=== PATIENT | female | born 1985 | race American Indian/Alaskan Native ===

== ENCOUNTER 2018-11-30 19:07 | Inpatient (IN) | payer MEDICAID, OTHER ==
[2018-11-30] MEDS ORDERED: Sodium Chloride 0.9% 1,000 ML IV ONE (19:28)
[2018-11-30] MEDS ORDERED: Clindamycin Phosphate 900 MG in Sodium Chloride 0.9% 100 ML IV ONE (19:28)
[2018-11-30] MEDS ORDERED: Acetaminophen/HYDROcodone 325-10 MG Tab PO ONE (19:28)
--- NOTE | 2018-11-30 19:31 | EDM.PDOC ---
ED HPI GENERAL MEDICAL PROBLEM - General Chief Complaint: Skin Complaint Stated Complaint: CYST UNDER LEFT ARM Time Seen by Provider: 11/30/18 19:28 Source of Information: Reports: Patient History Limitations: Reports: No Limitations - History of Present Illness INITIAL COMMENTS - FREE TEXT/NARRATIVE: 3 days h/o left armpit abscess. usually hot packs work but not this time. Left Arm Pain Score (Numeric/FACES): 9 - Related Data Allergies Allergy/AdvReac Type Severity Reaction Status Date / Time No Known Allergies Allergy Verified 11/30/18 19:15 Home Meds: Home Meds . 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 ED EXAM, SKIN/RASH Exam: See Below Exam Limited By: No Limitations General Appearance: Alert, WD/WN, Mild Distress, Other (discomfort) Ears: Hearing Grossly Normal Throat/Mouth: Normal Voice, No Airway Compromise Head: Atraumatic Neck: Non-Tender, Full Range of Motion Respiratory/Chest: No Respiratory Distress Cardiovascular: Regular Rate, Rhythm GI/Abdominal: Soft, Non-Tender Extremities: Other (left armpit abscess firm tender non fluctuant, no lymphangitis, NV wnl) Neurological: Alert, Oriented, Normal Cognition, Normal Gait, No Motor/Sensory Deficits Psychiatric: Tearful Skin: Warm, Dry, Normal Color Location, Skin: Upper Extremity, Left Associated features: Tenderness, Inflammation. No: Lymphangitis Lymphatic: No Adenopathy Course - Vital Signs Last Recorded V/S: Last Vital Signs Temp 36.8 C 11/30/18 19:14 Pulse 86 11/30/18 19:14 Resp 16 11/30/18 19:14 BP 110/51 L 11/30/18 19:14 Pulse Ox 100 11/30/18 19:14 - Orders/Labs/Meds Orders: Active Orders 24 hr Category Date Time Status Extremity Non Vascular Lt [US] Urgent Exams 11/30/18 20:06 Ordered CULTURE BLOOD [BC] Stat Lab 11/30/18 19:30 Received Labs: Laboratory Tests 11/30/18 11/30/18 11/30/18 Range/Units 19:30 19:30 19:30 WBC 22.2 H (5.0-10.0) 10^3/uL RBC 4.36 (4.2-5.4) 10^6/uL Hgb 7.6 L (12.0-16.0) g/dL Hct 25.9 L (37.0-47.0) % MCV 59.4 L (80-100) fL MCH 17.4 L (27.0-34.0) pg MCHC 29.3 L (33.0-35.0) g/dL Plt Count 495 H (150-450) 10^3/uL Lymph % (Auto) 10.6 L (20.5-50.1) % [place] % (Auto) 6.4 (2-8) % Eos % (Auto) 2.9 (1.0-3.0) % Add Manual Diff Yes Neutrophils % (Manual) 63 (42-75) % Band Neutrophils % 13 % Lymphocytes % (Manual) 12 L (20-50) % Atypical Lymphs % 0 % Monocytes % (Manual) 7 (2-8) % Eosinophils % (Manual) 4 H (1-3) % Basophils % (Manual) 1 Platelet Estimate Increased Hypochromasia 2+ moderate Microcytosis 2+ moderate Sodium 137 (135-145) mmol/L Potassium 2.8 L (3.6-5.0) mmol/L Chloride 105 (101-111) mmol/L Carbon Dioxide 23.0 (21.0-31.0) mmol/L Anion Gap 11.8 BUN 10 (7-18) mg/dL Creatinine 0.6 (0.6-1.3) mg/dL Est Cr Clr Drug Dosing 139.37 mL/min Estimated GFR (MDRD) > 60 BUN/Creatinine Ratio 16.66 Glucose 139 H (74-105) mg/dL Lactic Acid 0.9 (0.5-2.2) mmol/L Calcium 8.2 L (8.4-10.2) mg/dl Total Bilirubin 0.6 (0.2-1.0) mg/dL AST 21 (10-42) IU/L ALT 21 (10-60) IU/L Alkaline Phosphatase 73 (42-121) IU/L Total Protein 7.4 (6.7-8.2) g/dl Albumin 3.4 (3.2-5.5) g/dl Globulin 4.0 Albumin/Globulin Ratio 0.85 Meds: Medications Discontinued Medications Generic Name Dose Route Start Last Admin Trade Name Freq PRN Reason Stop Dose Admin Hydrocodone Bitart/Acetaminophen 1 tab 11/30/18 19:28 11/30/18 19:44 [place] 325-10 Mg PO 11/30/18 19:29 1 tab ONETIME ONE Administration Clindamycin Phosphate 900 mg/ 106 mls @ 200 mls/hr 11/30/18 19:28 11/30/18 19 :42 Sodium Chloride IV 11/30/18 19:59 200 mls/hr ONETIME ONE Administration Sodium Chloride 1,000 mls @ 999 mls/hr 11/30/18 19:28 11/30/18 19:41 Normal Saline IV 11/30/18 20:28 999 mls/hr .BOLUS ONE Administration - Re-Assessments/Exams Free Text/Narrative Re-Assessment/Exam: 11/30/18 21:11 results discussed with pt and case discussed with Dr Sanchez who kindly admitted pt to observation Departure - Departure Time of Disposition: 21:11 Disposition: Refer to Observation Condition: Fair Clinical Impression: Cellulitis Qualifiers: Site of cellulitis: extremity Site of cellulitis of extremity: axilla Laterality: left Qualified Code(s): L03.112 - Cellulitis of left axilla - Discharge Information Forms: ED Department Discharge - My Orders Last 24 Hours: My Active Orders 11/30/18 19:30 CULTURE BLOOD [BC] Stat 11/30/18 20:06 Extremity Non Vascular Lt [US] Urgent - Assessment/Plan Last 24 Hours: My Active Orders 11/30/18 19:30 CULTURE BLOOD [BC] Stat 11/30/18 20:06 Extremity Non Vascular Lt [US] Urgent
[2018-11-30 19:58] LABS: ANION GAP 11.8; CHLORIDE,CL 105 mmol/L (101-111); SODIUM,NA 137 mmol/L (135-145)
[2018-11-30] MEDS ORDERED: Morphine 2 MG/ML Syringe IVPUSH PRN (22:37)
[2018-11-30] MEDS ORDERED: Ondansetron 4 MG Tab.DIS PO PRN (22:37)
[2018-11-30] MEDS ORDERED: Docusate Sodium 100 MG Cap PO PRN (22:37)
[2018-11-30] MEDS ORDERED: Magnesium Hydroxide 400 MG/5 ML Susp 30 ML Cup PO PRN (22:37)
[2018-11-30] MEDS: Potassium Chloride 10 MEQ Tab.ER PO SCH (23:14)
[2018-11-30] MEDS: Piperacillin/Tazobactam 3.375 GM in Sodium Chloride 0.9% 100 ML IV SCH (23:14)
[2018-11-30] MEDS: NS + KCl 20mEq/L 1,000 ML IV SCH (23:14)
[2018-11-30] MEDS: Ketorolac 30 MG/ML SDV IVPUSH PRN (23:15)
[2018-11-30] MEDS: oxyCODONE 5 MG Tab PO PRN (23:16)
[2018-11-30] MEDS ORDERED: Vancomycin 1.5 GM in Sodium Chloride 0.9% 500 ML IV SCH (23:30)
--- NOTE | 2018-12-01 04:19 | HP ---
CHIEF COMPLAINT: Left arm pain. HISTORY OF PRESENTING ILLNESS: Mrs. Kacy Taylor is a 33-year-old female with a medical history significant for MRSA infection in the past, history of -induced hypertension and -induced diabetes, presented to the ER today with complaints of having pain to the left arm, and was noted to have cellulitis and possible abscess of the left arm, requiring admission to the hospital. She was also noted to have severe hypokalemia and anemia. At this time, the patient says that for the last 2-3 days, the patient has been experiencing this left arm pain in the armpit, which is 8-9/10 in intensity, which gets aggravated on movement and ambulation, relieved partially with pain medication. She has been taking ibuprofen and Tylenol high doses for better control of the pain, but continued to have pain, and has been feeling chills and rigors in the last 1 or 2 days. She denies any associated nausea or vomiting. No diarrhea. No abdominal pain. No chest pain. No shortness of breath at this time. The patient denied any history of chest pains on exertion. No history of dyspnea on exertion. No history of orthopnea or paroxysmal nocturnal dyspnea. The patient denied any history of hematemesis, hematochezia, or melenic stools. Normal bowel and bladder habits otherwise. REVIEW OF SYSTEMS: A complete review of systems including skin, ear, nose, and throat, cardiovascular system, respiratory system, gastrointestinal system, genitourinary system, hematology, oncology, neurology, allergy, immunology, constitutional were all evaluated and were negative except for the above-said notes. PAST MEDICAL HISTORY: Significant for obesity, history of MRSA infection in the past, history of group B streptococcus infection in the past, depression, -induced hypertension and -induced diabetes in the past. PAST SURGICAL HISTORY: Significant for sections, appendicectomy, and laparoscopic cholecystectomy. FAMILY HISTORY: Significant for hypertension and diabetes in her mother and father, and stomach cancer in her father, and stomach cancer in one of her sisters. SOCIAL HISTORY: The patient smokes a pack of cigarettes for the last almost a week and history of occasional alcohol intake. ALLERGIES: The patient noted to have allergies to lactose and soap. HOME MEDICATIONS: No known home medications at this time. PHYSICAL EXAMINATION: Vital Signs: Temperature of 98.3, pulse of 86, blood pressure 110/51, respiratory rate of 16, and saturating at 100% on room air. General Appearance: The patient is well oriented to time, place, and person; follows commands spontaneously. Cardiovascular System: S1, S2 heard with normal intensity. No gallops. Respiratory System: Clear to auscultation bilaterally. No wheezes. No crepitations. Abdomen: Soft. Bowel sounds positive. Nontender. No rigidity. Extremities: No edema in bilateral lower extremities. The patient is noted to have tenderness, erythema, and swelling noted to the left armpit, and a solid mass-like induration noted to the left armpit, a small indentation with superficial ulcer noted on the left arm. No active discharge noted at this time. LABORATORY DATA: WBC 22.2, hemoglobin 7.6, hematocrit 25.9, platelet count 495. Sodium 137, potassium 2.8, chloride 105, bicarb 23, BUN 10, creatinine 0.6, glucose 139, lactic acid 0.9. ASSESSMENT: 1. Cellulitis and possible abscess of the left armpit. 2. Anemia. 3. Iron-deficiency anemia. 4. Hypokalemia. 5. Leukocytosis. PLAN: 1. Cellulitis and possible abscess: The patient is noted to have cellulitis involving the left armpit. The patient had an ultrasound as per discussion with the ER staff and no drainable abscess noted at this time. The patient has history of MRSA in the past. We will obtain blood cultures and wound cultures. We will start her on Zosyn and vancomycin, and we will closely follow with the culture reports. 2. Anemia: The patient has longstanding history of iron-deficiency anemia. The patient claims that she is not taking any iron tablets at home as she does not tolerate them very well. We will get iron, B12, folate levels and peripheral smear. She might benefit from blood transfusion if needed. We will closely follow the patient. 3. Tobacco use: The patient is educated about tobacco cessation. Strongly encouraged her to quit smoking, which she understands and verbalized the same. 4. Hypokalemia: The patient noted to have severe hypokalemia. We will replace with IV and oral potassium chloride, recheck a basic metabolic panel in the a.m. 5. DVT prophylaxis indicated. We will have her on Lovenox for DVT prophylaxis. 6. Code status: The patient wants to be full code. 7. Discussed with Dr. Ruano, ER physician, regarding the plan of care. Reviewed the labs and medications. Reviewed the old charts. [facility] /[id number]
[2018-12-01] MEDS: Piperacillin/Tazobactam 3.375 GM in Sodium Chloride 0.9% 100 ML IV SCH ×5 (05:33→23:09)
[2018-12-01] MEDS: Ketorolac 30 MG/ML SDV IVPUSH PRN ×2 (05:48→11:48)
[2018-12-01] MEDS: oxyCODONE 5 MG Tab PO PRN ×2 (05:49→11:48)
[2018-12-01 06:46] LABS: ANION GAP 12.1; CHLORIDE,CL 110 mmol/L (101-111); SODIUM,NA 139 mmol/L (135-145)
[2018-12-01] MEDS: Ondansetron 4 MG/2 ML SDV IVPUSH PRN ×2 (07:12→17:44)
[2018-12-01] MEDS: Vancomycin 1.5 GM in Sodium Chloride 0.9% 500 ML IV SCH ×3 (09:05→23:59)
[2018-12-01] MEDS: Enoxaparin 40 MG/0.4 ML Syringe SUBCUT SCH (09:06)
[2018-12-01] MEDS: Potassium Chloride 10 MEQ Tab.ER PO SCH ×3 (09:07→23:17)
[2018-12-01] MEDS ORDERED: Potassium Chloride 10 MEQ Tab.ER PO ONE (11:38)
[2018-12-01] MEDS: NS + KCl 20mEq/L 1,000 ML IV SCH (13:41)
--- NOTE | 2018-12-01 15:04 | PN ---
DATE: 12/01/2018 HISTORY OF PRESENT ILLNESS: Ms. Claudia Woodruff is a 33-year-old female with medical history significant for iron deficiency anemia, admitted to the hospital with complaints of left armpit pain, noted to have cellulitis and possible lymphadenitis with history of MRSA positive in the past. For the last 24 hours, the patient is continued on IV antibiotics and IV pain medications. Her pain seems to be improved with Toradol. She denies any chest pain. No shortness of breath. No abdominal pain. No nausea. No vomiting. No diarrhea. REVIEW OF SYSTEMS: Cardiovascular, respiratory, gastrointestinal, neurology, constitutional were all evaluated. PHYSICAL EXAMINATION: Vitals: Temperature of 99.3, pulse of 80, blood pressure 103/51, respiratory rate of 18, and saturating at 99% on room air. General Appearance: The patient is well oriented to time, place, and person. Follows commands spontaneously. Cardiovascular System: S1 and S2 heard with normal intensity. No gallops. Respiratory System: Clear to auscultation bilaterally. No wheeze. No crepitations. Abdomen: Soft. Bowel sounds positive. Nontender. No rigidity. Extremities: No edema in bilateral lower extremities. The patient continues to have swelling and erythema to the left armpit. Tenderness improved. MEDICATIONS: Tylenol 650 every 4 hours as needed for pain and fever; Lovenox 40 mg subcutaneous daily; Toradol 30 mg IV q.6 hours as needed for pain; magnesium oxide 250 mg twice a day; morphine 2 mg IV every 2 hours as needed for pain control; oxycodone 5 mg every 4 hours as needed; potassium chloride 20 mEq 3 times a day; vancomycin, pharmacy to dose; Zosyn 3.375 g IV q.6 hourly. LABORATORY DATA: 1. WBC 20.1, hemoglobin 6.9, hematocrit 22.3, platelet count 432. 2. Sodium 139, potassium 3.1, chloride 110, bicarb 20, BUN 8, creatinine 0.6, glucose 99. Magnesium 1.6. Phosphorus 2.6. ASSESSMENT: 1. Cellulitis and possible abscess of the left armpit. 2. Hypokalemia. 3. Hypomagnesemia. 4. Anemia. 5. Iron deficiency. PLAN: 1. Cellulitis and possible abscess. At this juncture abscess looks less likely. The patient had an ultrasound of the left armpit which did not show any drainable abscess. She is noted to have tenderness and swelling in the left armpit, unsure if the patient has any lymphadenitis. The patient is started on Zosyn and vancomycin after which her symptom seems to be improved. We will continue with current antibiotics. We will follow the culture reports. 2. Anemia. The patient noted to have a hemoglobin of 6.9, and she has severe anemia. We will transfuse at least 2 units of packed red blood cell. Informed consent is obtained from the patient for blood transfusion after explaining the risks, benefits, complications of blood transfusion. She had blood transfusion in the past, back in 2009, without any complications at that time. We will closely follow. We also ordered for iron, B12, and folate level which are still pending, and we will replace with iron as needed. The patient was on iron tablets, but she is not able to tolerate the iron tablets well, one might consider giving IV iron while in the hospital. 3. Hypokalemia. The patient noted to have a potassium of 3.1, slightly improved. We will replace with 20 mEq of potassium chloride and give additional 40 mEq today and recheck a basic metabolic panel in the a.m. 4. Hypomagnesemia. We will replace with oral magnesium and recheck the magnesium in a.m. 5. DVT prophylaxis. Continue with Lovenox for DVT prophylaxis. [facility] /[id number]
[2018-12-01] MEDS ORDERED: Aluminum Hydroxide/Magnesium Hydroxide/Simethicone Susp 30 ML Cup PO PRN (19:09)
[2018-12-01] MEDS ORDERED: Pantoprazole 40 MG in Sodium Chloride 0.9% 100 ML IV SCH (20:00)
[2018-12-01] MEDS: Pantoprazole 40 MG Vial IVPUSH SCH (20:25)
[2018-12-02] MEDS: NS + KCl 20mEq/L 1,000 ML IV SCH (04:09)
[2018-12-02] MEDS: Piperacillin/Tazobactam 3.375 GM in Sodium Chloride 0.9% 100 ML IV SCH ×4 (05:18→23:13)
[2018-12-02] MEDS: Acetaminophen 325 MG Tab PO PRN ×2 (07:33→21:54)
[2018-12-02 07:59] LABS: ANION GAP 12.9; CHLORIDE,CL 112 mmol/L (101-111); SODIUM,NA 140 mmol/L (135-145)
[2018-12-02] MEDS: Vancomycin 1.5 GM in Sodium Chloride 0.9% 500 ML IV SCH ×2 (08:27→11:37)
[2018-12-02] MEDS: Pantoprazole 40 MG Vial IVPUSH SCH (08:50)
[2018-12-02] MEDS: Potassium Chloride 10 MEQ Tab.ER PO SCH ×3 (08:50→17:17)
[2018-12-02] MEDS: Enoxaparin 40 MG/0.4 ML Syringe SUBCUT SCH (08:52)
--- NOTE | 2018-12-02 09:47 | PN ---
DATE: 12/02/2018 HISTORY OF PRESENT ILLNESS: Mrs. Claudia Woodruff is a 33-year-old female with a medical history significant for an iron deficiency anemia, admitted with complaints of left arm pain. Noted to have cellulitis involving the left armpit with lymphadenitis with history of MRSA in the past. For the last 24 hours, the patient pain seems to be improving, but she had episodes of nausea and vomiting yesterday mainly from her Toradol, so we had to discontinue the Toradol. She denies any ongoing chest pains. No shortness of breath. No abdominal pain. No nausea. No vomiting. This morning, no diarrhea. REVIEW OF SYSTEMS: Cardiovascular, respiratory, gastrointestinal, neurology, constitutional were all evaluated. PHYSICAL EXAMINATION: Vital Signs: Temperature of 99.1, pulse of 81, blood pressure 116/59, respiratory rate of 16, saturating at 100% on room air. General Appearance: The patient is well oriented to time, place, and person. Follows commands spontaneously. Cardiovascular: S1 and S2 heard with normal intensity. No gallops. Respiratory: Clear to auscultation bilaterally. No wheeze. No crepitations. Abdomen: Soft. Bowel sounds positive. Nontender. No rigidity. Extremities: No edema in bilateral lower extremity. Tenderness and swelling noted to the left arm pit. No active discharge noted from the left arm. MEDICATIONS: Reviewed. Continue with: 1. Tylenol 650 every 4 hours as needed for pain and fever. 2. Docusate sodium 100 mg twice a day as needed. 3. Lovenox 40 mg subcutaneous daily. 4. Magnesium oxide 250 mg twice a day. 5. Morphine 2 mg IV every 2 hours as needed for pain. 6. Oxycodone 5 mg every 4 hours as needed for pain. 7. Zosyn and vancomycin pharmacy to dose. 8. Potassium chloride 20 mEq 3 times a day. LABS: Awaiting for labs, ordered for CBC and a BMP. ASSESSMENT: 1. Cellulitis involving the left arm pit. 2. Hypokalemia. 3. Hypomagnesemia. 4. Anemia. 5. Iron deficiency. PLAN: 1. Cellulitis. The patient is continued on Zosyn and vancomycin; so far her cultures remained negative. We will follow the culture reports. 2. Anemia. The patient was noted to have severe anemia with hemoglobin dropping down to 6. She received 2 units of packed red blood cells yesterday without any complications. We will follow the CBC this morning. 3. Hypokalemia. The patient was replaced with IV and oral potassium chloride. We will discontinue the IV fluids for now. Continue the oral potassium chloride. We will follow the BMP this morning. 4. Hypomagnesemia. She is currently on oral magnesium. We will recheck a magnesium level in a.m. 5. DVT prophylaxis. Continue with Lovenox for DVT prophylaxis. 6. Given her history of MRSA in the past. We will continue Zosyn and vancomycin. Since she still has swelling and tenderness. We will continue the antibiotics for now. [facility] /[id number]
[2018-12-02] MEDS: Sodium Chloride 0.9% 10 ML Syringe FLUSH PRN ×2 (16:42→23:13)
[2018-12-03] MEDS: Vancomycin 1.5 GM in Sodium Chloride 0.9% 500 ML IV SCH (00:03)
[2018-12-03] MEDS: Piperacillin/Tazobactam 3.375 GM in Sodium Chloride 0.9% 100 ML IV SCH ×2 (05:14→12:10)
[2018-12-03] MEDS: Sodium Chloride 0.9% 10 ML Syringe FLUSH PRN (05:14)
[2018-12-03] MEDS: Acetaminophen 325 MG Tab PO PRN (06:28)
[2018-12-03 07:14] LABS: ANION GAP 13.8; CHLORIDE,CL 109 mmol/L (101-111); SODIUM,NA 140 mmol/L (135-145)
[2018-12-03] MEDS: Potassium Chloride 10 MEQ Tab.ER PO SCH (08:31)
[2018-12-03] MEDS: Enoxaparin 40 MG/0.4 ML Syringe SUBCUT SCH (08:32)
[2018-12-03] MEDS: Pantoprazole 40 MG Vial IVPUSH SCH (08:32)
--- NOTE | 2018-12-04 11:52 | DISCH ---
ADMITTING DIAGNOSES: 1. Cellulitis and possible abscess. 2. Severe anemia. 3. Hypokalemia. 4. Chronic tobacco use. DISCHARGE DIAGNOSES: 1. Cellulitis, improved on IV antibiotic with Zosyn and vancomycin, switched to oral Bactrim at the time of discharge. 2. Iron-deficiency anemia, chronic, requiring blood transfusion 2 units on this admission. 3. Hypokalemia. 4. Hypomagnesemia. 5. Iron deficiency. HISTORY OF PRESENTING ILLNESS: Ms. Kacy Taylor is a 33-year-old female with a medical history significant for long-standing history of iron-deficiency anemia, admitted with left armpit pain. The patient had an ultrasound of the left armpit, which showed evidence of palpable abnormality corresponds to a hyperechoic lesion, etiology uncertain; findings may be related to lymphadenopathy, however, other masses are not excluded. The patient had 1.9 x 1.5 x 2.2 cm mass. She was noted to have folliculitis leading to cellulitis and lymphadenopathy in the left armpit. The patient was started on IV Zosyn and vancomycin. The patient had history of MRSA infection in the past, she responded well to the treatment. She was also noted to have severe anemia on this admission with hemoglobin dropping down to 6.9 and hematocrit of 22.3. She has history of iron-deficiency anemia. She has been advised to take iron tablets, but patient is noncompliant with medical treatment. The patient received 2 units of packed red blood cells, after which her hemoglobin improved to 10.5. She has persistent leukocytosis, but she denied any fevers or chills at this time. She also noted to have hypokalemia at the time of admission with potassium of 2.8 requiring IV and oral potassium chloride, after which her potassium improved to 3.8. She remained hemodynamically stable on this admission. She wanted to be discharged home. She remained afebrile. Her symptoms resolved, and her swelling in the left armpit has also much improved. She is being discharged home in stable condition. She is advised to take Bactrim 1 tablet Double-Strength twice a day for the next 1 week. She is advised to follow with her primary care physician in the next 1 week of time. She is advised to return back to the hospital if she has any increased swelling, increased pain or drainage or fevers and chills, which she understands and verbalizes the same. DISCHARGE MEDICATIONS: 1. Bactrim double-strength 1 tablet twice a day for 1 week. 2. Tylenol 650 mg every 4 hours as needed for pain and fever. PHYSICAL EXAMINATION: On the day of discharge: Vital Signs: Temperature of 99.1, pulse of 81, blood pressure 116/57, respiratory rate 16, saturating at 99%. General Appearance: The patient is well oriented to time, place, and person. Follows commands spontaneously. Cardiovascular System: S1, S2 heard with normal intensity. No gallops. Respiratory System: Clear to auscultation bilaterally. No wheeze. No crepitations. Abdomen: Soft. Bowel sounds positive. Nontender. No rigidity. Extremities: No edema, bilateral lower extremities. Left armpit, mild swelling noted, lymphadenopathy, much improved from the time of admission. No erythema, no tenderness noted at this time. No discharge noted at this time. Pulses felt well. CONDITION ON DISCHARGE: Poor. CONDITION ON DISCHARGE: Stable. DISPOSITION: Discharged to home. ACTIVITY: As tolerated. DIET: Cardiac healthy diet. DISCHARGE INSTRUCTIONS: Patient is educated about tobacco cessation and strongly encouraged to quit smoking, which she understands and verbalized the same. Follow up with primary care physician in the next 1 week of time. Spent over 35 minutes of time in evaluating and treating this patient and making discharge plans. [facility] /[id number]
== END 2018-12-03 12:55 | disposition home or self-care (01) | DRG 603 ==
LOC: DL.ED 19:07 → DL.MS 21:20 → OBSVTOIN 22:37
PROVIDERS: ADMIT Internal Medicine; ATTEND Internal Medicine
PROC: 30233N1 Transfusion of Nonautologous Red Blood Cells into Peripheral Vein, Percutaneous Approach (ICD-10-PCS; principal; 2018-12-01)
DX: L03.112 Cellulitis of left axilla (principal); E87.6 Hypokalemia; E66.9 Obesity, unspecified; F32.9 Major depressive disorder, single episode, unspecified; F17.210 Nicotine dependence, cigarettes, uncomplicated; D50.9 Iron deficiency anemia, unspecified; L02.412 Cutaneous abscess of left axilla; I88.9 Nonspecific lymphadenitis, unspecified; E83.42 Hypomagnesemia; Z90.49 Acquired absence of other specified parts of digestive tract; Z79.899 Other long term (current) drug therapy; Z91.19 Patient's noncompliance with other medical treatment and regimen; Z68.36 Body mass index [BMI] 36.0-36.9, adult
CPT/HCPCS: 36415; 36430; 76881-LT; 80048; 80053; 80202; 82607; 82728; 82746; 83540; 83550; 83605; 83735; 84100; 85025; 85027; 86850; 86900; 86901; 86920; 86922; 87040; 96365; 99284-25; A9270-GY; C9113; J1650; J1885; J2405; J2543; J3370; J3480; J3490; J7030; J7040; J7050; P9016

== ENCOUNTER 2021-03-09 15:40 | Observation (INO) | payer OTHER ==
[2021-03-09 16:49] LABS: ANION GAP 16.4 mEq/L (7-13); CHLORIDE,CL 92 mmol/L (98-107); SODIUM,NA 130 mmol/L (136-145)
[2021-03-09 17:01] LABS: ACETAMINOPHEN 0 ug/mL (10-30 (Therapeutic))
[2021-03-09 17:02] LABS: AMPHETAMINES,URINE NEGATIVE (NEGATIVE); BARBITURATES,URINE NEGATIVE (NEGATIVE); BENZODIAZEPINE,URINE NEGATIVE (NEGATIVE); MDMA (ECSTASY), URINE NEGATIVE (NEGATIVE); METHADONE,URINE NEGATIVE (NEGATIVE); METHAMPHETAMINES,URINE NEGATIVE (NEGATIVE); OPIATES,URINE NEGATIVE (NEGATIVE); OXYCODONE,URINE NEGATIVE (NEGATIVE); PHENCYCLIDINE,URINE NEGATIVE (NEGATIVE); TCA,URINE NEGATIVE (NEGATIVE)
[2021-03-09] MEDS ORDERED: Sodium Chloride 0.9% 1,000 ML IV ONE ×2 (17:03→18:40)
[2021-03-09 17:20] LABS: ALLEN TEST PERFORMED; BASE EXCESS ARTERIAL -1 mmol/L ((-2)-(+3)); BICARBONATE,ARTERIAL 23.2 mmol/L (22-26); O2 DELIVERY DEVICE ROOM AIR; O2 SATURATION ARTERIAL 99 % (95-100); PCO2 ARTERIAL 38 mmHg (35-45); PO2 ARTERIAL 90 mmHg (70-100)
[2021-03-09] MEDS ORDERED: 50% Dextrose in Water 50 ML Syringe IVPUSH PRN ×3 (17:49→20:21)
[2021-03-09] MEDS ORDERED: Glucagon,Human Recombinant 1 MG Vial IM PRN ×3 (17:49→20:21)
[2021-03-09] MEDS ORDERED: Insulin Regular, Human 100 Units/ML 3 ML Vial IV ONE (17:49)
--- NOTE | 2021-03-09 18:11 | EDM.PDOC ---
ED HPI GENERAL MEDICAL PROBLEM - General Chief Complaint: Diabetic Complaint Stated Complaint: hypergycemia Time Seen by Provider: 03/09/21 17:05 Source of Information: Reports: Patient, Provider History Limitations: Reports: No Limitations - History of Present Illness INITIAL COMMENTS - FREE TEXT/NARRATIVE: This 35 yo female patient was sent to the ED from the [facility] due to an elevated blood sugar level. The patient's blood sugar level at the [facility] was reported to be 995. The patient reports she has was feeling very tired over the past week, thirsty and had frequent urination. The patient reports she was given a script for insulin today, but had not picked up the prescription before having her blood sugar checked and advised to come to the ED. Onset: Unknown/Unsure Duration: Constant Location: Reports: Generalized Quality: Reports: Other Severity: Moderate Improves with: Reports: None Worsens with: Reports: None Context: Reports: Other Associated Symptoms: Reports: No Other Symptoms - Related Data Allergies Allergy/AdvReac Type Severity Reaction Status Date / Time No Known Allergies Allergy Verified 11/30/18 19:15 Home Meds: Home Meds Acetaminophen [Tylenol] 650 mg PO Q4H PRN tablet 12/03/18 [Rx] Sulfamethoxazole/Trimethoprim [Bactrim Ds Tablet] 1 each PO BID 7 Days #14 tablet 12/03/18 [Rx] Past Medical History - Past Health History Medical/Surgical History: Denies Medical/Surgical History [employer] History: Reports: Endocrine/Metabolic History: Reports: Diabetes, Type I - Infectious Disease History Infectious Disease History: Reports: MRSA - Past Surgical History GI Surgical History: Reports: Appendectomy, Cholecystectomy Female Surgical History: Reports: Section Other Female Surgeries/Procedures: [id number] Social & Family History - Family History Family Medical History: No Pertinent Family History - Tobacco Use Tobacco Use Status *Q: Never Tobacco User - Caffeine Use Caffeine Use: Reports: None - Recreational Drug Use Recreational Drug Use: No ED ROS GENERAL - Review of Systems Review Of Systems: Comprehensive ROS is negative, except as noted in HPI. ED EXAM GENERAL NO PERIP PULSE - Physical Exam Exam: See Below Exam Limited By: No Limitations General Appearance: Alert, WD/WN, Moderate Distress Eye Exam: Bilateral Eye: EOMI, Normal Inspection, PERRL Ears: Normal External Exam, Normal Canal, Hearing Grossly Normal, Normal TMs Nose: Normal Inspection, Normal Mucosa, No Blood Throat/Mouth: Normal Inspection, Normal Lips, Normal Teeth, Normal Gums, Normal Oropharynx, Normal Voice, No Airway Compromise Head: Atraumatic, Normocephalic Neck: Normal Inspection, Supple, Non-Tender, Full Range of Motion Respiratory/Chest: No Respiratory Distress, Lungs Clear, Normal Breath Sounds, No Accessory Muscle Use, Chest Non-Tender Cardiovascular: Normal Peripheral Pulses GI/Abdominal: Normal Bowel Sounds, Soft, Non-Tender, No Organomegaly, No Distention, No Abnormal Bruit, No Mass (Female) Exam: Deferred Rectal (Female) Exam: Deferred Back Exam: Normal Inspection, Full Range of Motion, NT Extremities: Normal Inspection, Normal Range of Motion, Non-Tender, Normal Capillary Refill, No Pedal Edema Neurological: Alert, Oriented, CN II-XII Intact, Normal Cognition, Normal Gait, Normal Reflexes, No Motor/Sensory Deficits Psychiatric: Normal Affect, Normal Mood Skin Exam: Warm, Dry, Intact, Normal Color, No Rash Lymphatic: No Adenopathy Course - Vital Signs Last Recorded V/S: Last Vital Signs Temp 97.2 F 03/09/21 16:21 Pulse 77 03/09/21 16:21 Resp 16 03/09/21 16:21 BP 142/66 H 03/09/21 16:21 Pulse Ox 99 03/09/21 16:21 - Orders/Labs/Meds Orders: Active Orders 24 hr Category Date Time Status Admission Diagnosis [ADT] Urgent ADT 03/09/21 18:03 Ordered Admission Status [Patient Status] [ADT] Routine ADT 03/09/21 18:03 Ordered Blood Glucose Check, Bedside [RC] ONETIME Care 03/09/21 17:49 Ordered CORONAVIRUS COVID-19 LIBBY [MOLEC] Urgent Lab 03/09/21 17:58 Ordered Dextrose 50% in Water Med 03/09/21 17:49 Ordered 50 ml IVPUSH Q15M PRN Glucagon,Human Recombinant [GlucaGen] Med 03/09/21 17:49 Ordered 1 mg IM Q15M PRN Medication Orders Dextrose/Water (50% Dextrose In Water 50 Ml Syringe) 50 ml IVPUSH Q15M PRN PRN Reason: Hypoglycemia Glucagon (Glucagon,Human Recombinant 1 Mg Vial) 1 mg IM Q15M PRN PRN Reason: Hypoglycemia Labs: Laboratory Tests 03/09/21 03/09/21 03/09/21 Range/Units 16:15 16:15 16:15 WBC 14.0 H (5.0-10.0) 10^3/uL RBC 4.75 (4.2-5.4) 10^6/uL Hgb 8.7 L D (12.0-16.0) g/dL Hct 30.1 L (37.0-47.0) % MCV 63.4 L (80-100) fL MCH 18.3 L (27.0-34.0) pg MCHC 28.9 L (33.0-35.0) g/dL Plt Count 741 H D (150-450) 10^3/uL Neut % (Auto) (42.2-75.2) % Add Manual Diff Yes Neutrophils % (Manual) 60 (42-75) % Lymphocytes % (Manual) 28 (20-50) % Monocytes % (Manual) 7 (2-8) % Eosinophils % (Manual) 5 H (1-3) % Hypochromasia 3+ marked Anisocytosis 2+ moderate Microcytosis 1+ slight Macrocytosis 1+ slight ABG pH (7.35-7.45) ABG pCO2 (35-45) mmHg ABG pO2 (70-100) mmHg ABG HCO3 (22-26) mmol/L ABG O2 Saturation (95-100) % ABG Base Excess ((-2)-(+3)) mmol/L Vito Test O2 Delivery Device Sodium 130 L (136-145) mmol/L Potassium 3.4 L (3.5-5.1) mmol/L Chloride 92 L (98-107) mmol/L Carbon Dioxide 25 (21-32) mmol/L Anion Gap 16.4 H (7-13) mEq/L BUN 6 L (7-18) mg/dL Creatinine 1.15 H (0.55-1.02) mg/dL Est Cr Clr Drug Dosing 63.92 mL/min Estimated GFR (MDRD) 54 BUN/Creatinine Ratio 5.2 (No establ ref range) Glucose 786 H* (70-99) mg/dL Lactic Acid (0.4-2.0) mmol/L Calcium 8.7 (8.5-10.1) mg/dL Magnesium 1.9 (1.8-2.4) mg/dL Total Bilirubin 0.6 (0.2-1.0) mg/dL AST 49 H (15-37) U/L ALT 63 H (14-59) U/L Alkaline Phosphatase 161 H (46-116) U/L Total Protein 8.5 H (6.4-8.2) g/dL Albumin 3.5 (3.4-5.0) g/dL Globulin 5.0 Albumin/Globulin Ratio 0.7 Urine Color (YELLOW) Urine Appearance (CLEAR) Urine pH (5.0-9.0) Ur Specific [place] (1.005-1.030) Urine Protein (NEGATIVE) Urine Glucose (UA) (NEGATIVE) Urine Ketones (NEGATIVE) Urine Occult Blood (NEGATIVE) Urine Nitrite (NEGATIVE) Urine Bilirubin (NEGATIVE) Urine Urobilinogen (0.2-1.0) mg/dL Ur Leukocyte Esterase (NEGATIVE) Urine RBC /HPF Urine WBC (0-5/HPF) /HPF Ur Epithelial Cells (NOT SEEN) /HPF Urine Bacteria (0-FEW/HPF) /HPF Urine Yeast (NOT SEEN) /HPF Urine HCG, Qual Salicylates < 2.8 L (2.8-20(Therapeutic)) mg/dL Urine Opiates Screen (NEGATIVE) Ur Oxycodone Screen (NEGATIVE) Urine Methadone Screen (NEGATIVE) Acetaminophen 0 L (10-30 (Therapeutic)) ug/mL Ur Barbiturates Screen (NEGATIVE) U Tricyclic Antidepress (NEGATIVE) Ur Phencyclidine Scrn (NEGATIVE) Ur Amphetamine Screen (NEGATIVE) U Methamphetamines Scrn (NEGATIVE) Urine MDMA Screen (NEGATIVE) U Benzodiazepines Scrn (NEGATIVE) Urine Cocaine Screen (NEGATIVE) U Marijuana (THC) Screen (NEGATIVE) Ethyl Alcohol < 3 (0) mg/dL Ketones Small-20 mg/dl 03/09/21 03/09/21 03/09/21 Range/Units 16:41 16:45 16:45 WBC (5.0-10.0) 10^3/uL RBC (4.2-5.4) 10^6/uL Hgb (12.0-16.0) g/dL Hct (37.0-47.0) % MCV (80-100) fL MCH (27.0-34.0) pg MCHC (33.0-35.0) g/dL Plt Count (150-450) 10^3/uL Neut % (Auto) (42.2-75.2) % Add Manual Diff Neutrophils % (Manual) (42-75) % Lymphocytes % (Manual) (20-50) % Monocytes % (Manual) (2-8) % Eosinophils % (Manual) (1-3) % Hypochromasia Anisocytosis Microcytosis Macrocytosis ABG pH (7.35-7.45) ABG pCO2 (35-45) mmHg ABG pO2 (70-100) mmHg ABG HCO3 (22-26) mmol/L ABG O2 Saturation (95-100) % ABG Base Excess ((-2)-(+3)) mmol/L Vito Test O2 Delivery Device Sodium (136-145) mmol/L Potassium (3.5-5.1) mmol/L Chloride (98-107) mmol/L Carbon Dioxide (21-32) mmol/L Anion Gap (7-13) mEq/L BUN (7-18) mg/dL Creatinine (0.55-1.02) mg/dL Est Cr Clr Drug Dosing mL/min Estimated GFR (MDRD) BUN/Creatinine Ratio (No establ ref range) Glucose (70-99) mg/dL Lactic Acid 1.6 (0.4-2.0) mmol/L Calcium (8.5-10.1) mg/dL Magnesium (1.8-2.4) mg/dL Total Bilirubin (0.2-1.0) mg/dL AST (15-37) U/L ALT (14-59) U/L Alkaline Phosphatase (46-116) U/L Total Protein (6.4-8.2) g/dL Albumin (3.4-5.0) g/dL Globulin Albumin/Globulin Ratio Urine Color Yellow (YELLOW) Urine Appearance Clear (CLEAR) Urine pH 6.5 (5.0-9.0) Ur Specific [place] 1.010 (1.005-1.030) Urine Protein Negative (NEGATIVE) Urine Glucose (UA) 500 H (NEGATIVE) Urine Ketones Negative (NEGATIVE) Urine Occult Blood Trace-intact H (NEGATIVE) Urine Nitrite Negative (NEGATIVE) Urine Bilirubin Negative (NEGATIVE) Urine Urobilinogen 0.2 (0.2-1.0) mg/dL Ur Leukocyte Esterase Negative (NEGATIVE) Urine RBC 0-5 /HPF Urine WBC 0-5 (0-5/HPF) /HPF Ur Epithelial Cells Few (NOT SEEN) /HPF Urine Bacteria Few (0-FEW/HPF) /HPF Urine Yeast Few H (NOT SEEN) /HPF Urine HCG, Qual Negative Salicylates (2.8-20(Therapeutic)) mg/dL Urine Opiates Screen (NEGATIVE) Ur Oxycodone Screen (NEGATIVE) Urine Methadone Screen (NEGATIVE) Acetaminophen (10-30 (Therapeutic)) ug/mL Ur Barbiturates Screen (NEGATIVE) U Tricyclic Antidepress (NEGATIVE) Ur Phencyclidine Scrn (NEGATIVE) Ur Amphetamine Screen (NEGATIVE) U Methamphetamines Scrn (NEGATIVE) Urine MDMA Screen (NEGATIVE) U Benzodiazepines Scrn (NEGATIVE) Urine Cocaine Screen (NEGATIVE) U Marijuana (THC) Screen (NEGATIVE) Ethyl Alcohol (0) mg/dL Ketones 03/09/21 03/09/21 Range/Units 16:45 17:15 WBC (5.0-10.0) 10^3/uL RBC (4.2-5.4) 10^6/uL Hgb (12.0-16.0) g/dL Hct (37.0-47.0) % MCV (80-100) fL MCH (27.0-34.0) pg MCHC (33.0-35.0) g/dL Plt Count (150-450) 10^3/uL Neut % (Auto) (42.2-75.2) % Add Manual Diff Neutrophils % (Manual) (42-75) % Lymphocytes % (Manual) (20-50) % Monocytes % (Manual) (2-8) % Eosinophils % (Manual) (1-3) % Hypochromasia Anisocytosis Microcytosis Macrocytosis ABG pH 7.40 (7.35-7.45) ABG pCO2 38 (35-45) mmHg ABG pO2 90 (70-100) mmHg ABG HCO3 23.2 (22-26) mmol/L ABG O2 Saturation 99 (95-100) % ABG Base Excess -1 ((-2)-(+3)) mmol/L Vito Test Performed O2 Delivery Device Room air Sodium (136-145) mmol/L Potassium (3.5-5.1) mmol/L Chloride (98-107) mmol/L Carbon Dioxide (21-32) mmol/L Anion Gap (7-13) mEq/L BUN (7-18) mg/dL Creatinine (0.55-1.02) mg/dL Est Cr Clr Drug Dosing mL/min Estimated GFR (MDRD) BUN/Creatinine Ratio (No establ ref range) Glucose (70-99) mg/dL Lactic Acid (0.4-2.0) mmol/L Calcium (8.5-10.1) mg/dL Magnesium (1.8-2.4) mg/dL Total Bilirubin (0.2-1.0) mg/dL AST (15-37) U/L ALT (14-59) U/L Alkaline Phosphatase (46-116) U/L Total Protein (6.4-8.2) g/dL Albumin (3.4-5.0) g/dL Globulin Albumin/Globulin Ratio Urine Color (YELLOW) Urine Appearance (CLEAR) Urine pH (5.0-9.0) Ur Specific [place] (1.005-1.030) Urine Protein (NEGATIVE) Urine Glucose (UA) (NEGATIVE) Urine Ketones (NEGATIVE) Urine Occult Blood (NEGATIVE) Urine Nitrite (NEGATIVE) Urine Bilirubin (NEGATIVE) Urine Urobilinogen (0.2-1.0) mg/dL Ur Leukocyte Esterase (NEGATIVE) Urine RBC /HPF Urine WBC (0-5/HPF) /HPF Ur Epithelial Cells (NOT SEEN) /HPF Urine Bacteria (0-FEW/HPF) /HPF Urine Yeast (NOT SEEN) /HPF Urine HCG, Qual Salicylates (2.8-20(Therapeutic)) mg/dL Urine Opiates Screen Negative (NEGATIVE) Ur Oxycodone Screen Negative (NEGATIVE) Urine Methadone Screen Negative (NEGATIVE) Acetaminophen (10-30 (Therapeutic)) ug/mL Ur Barbiturates Screen Negative (NEGATIVE) U Tricyclic Antidepress Negative (NEGATIVE) Ur Phencyclidine Scrn Negative (NEGATIVE) Ur Amphetamine Screen Negative (NEGATIVE) U Methamphetamines Scrn Negative (NEGATIVE) Urine MDMA Screen Negative (NEGATIVE) U Benzodiazepines Scrn Negative (NEGATIVE) Urine Cocaine Screen Negative (NEGATIVE) U Marijuana (THC) Screen Negative (NEGATIVE) Ethyl Alcohol (0) mg/dL Ketones Meds: Medications Generic Name Dose Route Start Last Admin Trade Name Freq PRN Reason Stop Dose Admin Dextrose/Water 50 ml 03/09/21 17:49 50% Dextrose In Water 50 Ml Syringe IVPUSH Q15M PRN Hypoglycemia Glucagon 1 mg 03/09/21 17:49 Glucagon,Human Recombinant 1 Mg Vial IM Q15M PRN Hypoglycemia Discontinued Medications Generic Name Dose Route Start Last Admin Trade Name Leah PRN Reason Stop Dose Admin Sodium Chloride 1,000 mls @ 999 mls/hr 03/09/21 17:03 03/09/21 17:07 Normal Saline IV 03/09/21 18:03 999 mls/hr .BOLUS ONE Administration Insulin Human Regular 5 unit 03/09/21 17:49 Insulin Regular, Human 100 Units/Ml 3 Ml Vial IV 03/09/21 17:50 ONETIME ONE Departure - Departure Time of Disposition: 18:11 Disposition: Refer to Observation Condition: Fair Clinical Impression: Acute hyperglycemia - Discharge Information *PRESCRIPTION DRUG MONITORING PROGRAM REVIEWED*: Not Applicable *COPY OF PRESCRIPTION DRUG MONITORING REPORT IN PATIENT OTTONIEL: Not Applicable Care Plan Goals: Discussed the patient's history, examination and lab results with Dr. Anaya. Dr. Anaya accepted the patient for continued evaluation and management at [facility] in [place]. Sepsis Event Note (ED) - Evaluation Sepsis Screening Result: No Definite Risk - Focused Exam Vital Signs: Vital Signs Temp Pulse Resp BP Pulse Ox 03/09/21 16:21 97.2 F 77 16 142/66 H 99 - My Orders Last 24 Hours: My Active Orders 03/09/21 17:49 Blood Glucose Check, Bedside [RC] ONETIME Dextrose 50% in Water 50 ml IVPUSH Q15M PRN Glucagon,Human Recombinant [GlucaGen] 1 mg IM Q15M PRN 03/09/21 17:58 CORONAVIRUS COVID-19 LIBBY [MOLEC] Urgent 03/09/21 18:03 Admission Diagnosis [ADT] Urgent Admission Status [Patient Status] [ADT] Routine - Assessment/Plan Last 24 Hours: My Active Orders 03/09/21 17:49 Blood Glucose Check, Bedside [RC] ONETIME Dextrose 50% in Water 50 ml IVPUSH Q15M PRN Glucagon,Human Recombinant [GlucaGen] 1 mg IM Q15M PRN 03/09/21 17:58 CORONAVIRUS COVID-19 LIBBY [MOLEC] Urgent 03/09/21 18:03 Admission Diagnosis [ADT] Urgent Admission Status [Patient Status] [ADT] Routine
[2021-03-09 19:19] LABS: ANION GAP 15.7 mEq/L (7-13); CHLORIDE,CL 103 mmol/L (98-107); SODIUM,NA 140 mmol/L (136-145)
[2021-03-09] MEDS ORDERED: Potassium Chloride 10 MEQ in Premix Bag 1 BAG IV ONE (19:23)
[2021-03-09] MEDS ORDERED: Magnesium Sulfate/Water 2 GM in Premix Bag 1 BAG IV ONE (19:24)
[2021-03-09] MEDS ORDERED: Ketorolac 30 MG/ML SDV IVPUSH ONE (19:37)
[2021-03-09] MEDS ORDERED: Ondansetron 4 MG/2 ML SDV IVPUSH PRN (20:05)
[2021-03-09] MEDS ORDERED: Sodium Chloride 0.9% 10 ML Syringe FLUSH PRN (20:05)
[2021-03-09] MEDS ORDERED: Sodium Chloride 0.45% 1,000 ML IV SCH (20:15)
--- NOTE | 2021-03-09 20:16 | PCM.HP ---
H&P History of Present Illness - General Date of Service: 03/09/21 Admit Problem/Dx: Admission Diagnosis/Problem Admission Diagnosis/Problem Hyperglycemia - History of Present Illness Initial Comments - Free Text/Narative: The patient is a 35-year-old female who presents with chief complaint of hyperglycemia. The patient states that she was diagnosed with diabetes approximately 1 week prior to hospitalization. She states on this day of hospitalization, March 09, 2021, she went to her outpatient clinic to package pick up her medications or prescription for her medications and her blood sugar was checked at that time and it was noted that she was hyperglycemic with her blood sugar level documented as 995 by staff member in the emergency department. The patient was subsequently directed to the emergency department. The patient Kasey that if she is not directed to the emergency department she would have not have presented on her own accord given that she was not feeling unwell with the exception of nausea. The patient had fever, rigors, vomiting, cough, wheeze, abdominal pain, diarrhea, myalgia. Upon further questioning the patient Kasey that she has been exhibiting blurry vision, polyuria, and polydipsia. She denies polyphagia. As mentioned above, per a staff member in the emergency department the patient's blood glucose was found to be 995 in the outpatient clinic. Upon presentation to the emergency department, the patient's serum glucose was found to be approximately 1000. At 4:15 PM her serum glucose was elevated at 786. At 5:03 PM the patient received an order for 1 L of IV normal saline and at 5:49 PM the patient received an order for 5 units of regular insulin. I was called with a request for hospitalization at 5:59 PM and during the call I expressed my concerns about whether adequate treatment had been rendered at that time given the severity of the patient's hyperglycemia and the modest amount of insulin that was administered at that time. At the very least it was my impression that the patient should have had her serum glucose rechecked to determine whether further treatment was necessary at that time. At 6:40 PM the patient received an order for 1 L of IV normal saline. At 6:42 PM patient serum glucose was checked and was found to be 368. At 7 PM the patient's serum glucose was checked and was found to be 291. At 7:25 PM I received a call from a staff memb er in the emergency department with a request for hospitalization and I indicated that the patient may be transferred to the medical floor as her serum glucose, at that time, had been adequately decreased as, during the prior call, I was notified that her serum glucose at that time was grossly elevated at 786. The patient presents for further evaluation - Related Data Allergies/Adverse Reactions: Allergies Allergy/AdvReac Type Severity Reaction Status Date / Time No Known Allergies Allergy Verified 11/30/18 19:15 Home Medications: Home Meds Acetaminophen [Tylenol] 650 mg PO Q4H PRN tablet 12/03/18 [Rx] Sulfamethoxazole/Trimethoprim [Bactrim Ds Tablet] 1 each PO BID 7 Days #14 tablet 12/03/18 [Rx] Past Medical History - Past Health History Medical/Surgical History: Denies Medical/Surgical History [employer] History: Reports: Endocrine/Metabolic History: Reports: Diabetes, Type I - Infectious Disease History Infectious Disease History: Reports: MRSA - Past Surgical History GI Surgical History: Reports: Appendectomy, Cholecystectomy Female Surgical History: Reports: Section Other Female Surgeries/Procedures: [id number] Social & Family History - Family History Family Medical History: No Pertinent Family History - Tobacco Use Tobacco Use Status *Q: Never Tobacco User - Caffeine Use Caffeine Use: Reports: None - Recreational Drug Use Recreational Drug Use: No H&P Review of Systems - Review of Systems: Review Of Systems: See Below General: Reports: No Symptoms HEENT: Reports: Visual Changes Pulmonary: Reports: No Symptoms Cardiovascular: Reports: No Symptoms Gastrointestinal: Reports: No Symptoms Genitourinary: Reports: No Symptoms Musculoskeletal: Reports: No Symptoms Skin: Reports: No Symptoms Psychiatric: Reports: No Symptoms Neurological: Reports: No Symptoms Hematologic/Lymphatic: Reports: No Symptoms Immunologic: Reports: No Symptoms Exam - Exam Exam: See Below - Vital Signs Vital Signs: Last Vital Signs Temp 97.2 F 03/09/21 16:21 Pulse 77 03/09/21 16:21 Resp 16 03/09/21 16:21 BP 142/66 H 03/09/21 16:21 Pulse Ox 99 03/09/21 16:21 Weight: 258 lb 4.8 oz - Exam General: Alert, Oriented, 4 HEENT: PERRLA, Hearing Intact, Mucosa Moist & [place], Nares Patent, Normal Nasal Septum, Posterior Pharynx Clear, Conjunctiva Clear, EOMI, EACs Clear, TMs Clear Neck: Supple, Trachea Midline, 2 Lungs: Clear to Auscultation, Normal Respiratory Effort Cardiovascular: Regular Rate, Regular Rhythm GI/Abdominal Exam: Normal Bowel Sounds, Soft, Non-Tender, No Organomegaly, No Distention, No Abnormal Bruit, No Mass, Pelvis Stable (Female) Exam: No: Normal External Exam, Normal Speculum Exam, Normal Bimanual Exam Back Exam: Normal Inspection, Full Range of Motion, NT Extremities: Normal Inspection, Normal Range of Motion, Non-Tender, No Pedal Edema, Normal Capillary Refill Peripheral Pulses: 2+: Carotid (L), Carotid (R), Brachial (L), Brachial (R), Radial (L), Radial (R), Femoral (L), Femoral (R), Popliteal (L), Popliteal (R), Posterior Tibial (L), Posterior Tibial (R), Dorsalis Pedis (L), Dorsalis Pedis (R) Skin: Warm, Dry, Intact Neurological: Cranial Nerves Intact, Reflexes Equal Bilateral Neuro Extensive - Mental Status: Alert, Oriented x3, Normal Mood/Affect, Normal Cognition Neuro Extensive - Motor, Sensory, Reflexes: CN II-XII Intact, Normal Gait, Normal Reflexes DTR: 2+: Bicep (L), Bicep (R), Tricep (L), Tricep (R), Patella (L), Patella (R), Achilles (L), Achilles (R) Psychiatric: Alert, Normal Affect, Normal Mood - Patient Data Lab Results Last 24 hrs: Laboratory Results - last 24 hr 03/09/21 03/09/21 03/09/21 Range/Units 16:00 16:15 16:15 WBC 14.0 H (5.0-10.0) 10^3/uL RBC 4.75 (4.2-5.4) 10^6/uL Hgb 8.7 L D (12.0-16.0) g/dL Hct 30.1 L (37.0-47.0) % MCV 63.4 L (80-100) fL MCH 18.3 L (27.0-34.0) pg MCHC 28.9 L (33.0-35.0) g/dL Plt Count 741 H D (150-450) 10^3/uL Neut % (Auto) (42.2-75.2) % Add Manual Diff Yes Neutrophils % (Manual) 60 (42-75) % Lymphocytes % (Manual) 28 (20-50) % Monocytes % (Manual) 7 (2-8) % Eosinophils % (Manual) 5 H (1-3) % Hypochromasia 3+ marked Anisocytosis 2+ moderate Microcytosis 1+ slight Macrocytosis 1+ slight ABG pH (7.35-7.45) ABG pCO2 (35-45) mmHg ABG pO2 (70-100) mmHg ABG HCO3 (22-26) mmol/L ABG O2 Saturation (95-100) % ABG Base Excess ((-2)-(+3)) mmol/L Vito Test O2 Delivery Device Sodium 130 L (136-145) mmol/L Potassium 3.4 L (3.5-5.1) mmol/L Chloride 92 L (98-107) mmol/L Carbon Dioxide 25 (21-32) mmol/L Anion Gap 16.4 H (7-13) mEq/L BUN 6 L (7-18) mg/dL Creatinine 1.15 H (0.55-1.02) mg/dL Est Cr Clr Drug Dosing 63.92 mL/min Estimated GFR (MDRD) 54 BUN/Creatinine Ratio 5.2 (No establ ref range) Glucose 786 H* (70-99) mg/dL POC Glucose (70-99) mg/dL Lactic Acid (0.4-2.0) mmol/L Calcium 8.7 (8.5-10.1) mg/dL Magnesium 1.9 (1.8-2.4) mg/dL Total Bilirubin 0.6 (0.2-1.0) mg/dL AST 49 H (15-37) U/L ALT 63 H (14-59) U/L Alkaline Phosphatase 161 H (46-116) U/L Total Protein 8.5 H (6.4-8.2) g/dL Albumin 3.5 (3.4-5.0) g/dL Globulin 5.0 Albumin/Globulin Ratio 0.7 Urine Color (YELLOW) Urine Appearance (CLEAR) Urine pH (5.0-9.0) Ur Specific [place] (1.005-1.030) Urine Protein (NEGATIVE) Urine Glucose (UA) (NEGATIVE) Urine Ketones (NEGATIVE) Urine Occult Blood (NEGATIVE) Urine Nitrite (NEGATIVE) Urine Bilirubin (NEGATIVE) Urine Urobilinogen (0.2-1.0) mg/dL Ur Leukocyte Esterase (NEGATIVE) Urine RBC /HPF Urine WBC (0-5/HPF) /HPF Ur Epithelial Cells (NOT SEEN) /HPF Urine Bacteria (0-FEW/HPF) /HPF Urine Yeast (NOT SEEN) /HPF Urine HCG, Qual Salicylates (2.8-20(Therapeutic)) mg/dL Urine Opiates Screen (NEGATIVE) Ur Oxycodone Screen (NEGATIVE) Urine Methadone Screen (NEGATIVE) Acetaminophen 0 L (10-30 (Therapeutic)) ug/mL Ur Barbiturates Screen (NEGATIVE) U Tricyclic Antidepress (NEGATIVE) Ur Phencyclidine Scrn (NEGATIVE) Ur Amphetamine Screen (NEGATIVE) U Methamphetamines Scrn (NEGATIVE) Urine MDMA Screen (NEGATIVE) U Benzodiazepines Scrn (NEGATIVE) Urine Cocaine Screen (NEGATIVE) U Marijuana (THC) Screen (NEGATIVE) Ethyl Alcohol < 3 (0) mg/dL Ketones Small-20 mg/dl SARS-CoV-2 RNA (LIBBY) Negative (NEGATIVE) 03/09/21 03/09/21 03/09/21 Range/Units 16:15 16:41 16:45 WBC (5.0-10.0) 10^3/uL RBC (4.2-5.4) 10^6/uL Hgb (12.0-16.0) g/dL Hct (37.0-47.0) % MCV (80-100) fL MCH (27.0-34.0) pg MCHC (33.0-35.0) g/dL Plt Count (150-450) 10^3/uL Neut % (Auto) (42.2-75.2) % Add Manual Diff Neutrophils % (Manual) (42-75) % Lymphocytes % (Manual) (20-50) % Monocytes % (Manual) (2-8) % Eosinophils % (Manual) (1-3) % Hypochromasia Anisocytosis Microcytosis Macrocytosis ABG pH (7.35-7.45) ABG pCO2 (35-45) mmHg ABG pO2 (70-100) mmHg ABG HCO3 (22-26) mmol/L ABG O2 Saturation (95-100) % ABG Base Excess ((-2)-(+3)) mmol/L Vito Test O2 Delivery Device Sodium (136-145) mmol/L Potassium (3.5-5.1) mmol/L Chloride (98-107) mmol/L Carbon Dioxide (21-32) mmol/L Anion Gap (7-13) mEq/L BUN (7-18) mg/dL Creatinine (0.55-1.02) mg/dL Est Cr Clr Drug Dosing mL/min Estimated GFR (MDRD) BUN/Creatinine Ratio (No establ ref range) Glucose (70-99) mg/dL POC Glucose (70-99) mg/dL Lactic Acid 1.6 (0.4-2.0) mmol/L Calcium (8.5-10.1) mg/dL Magnesium (1.8-2.4) mg/dL Total Bilirubin (0.2-1.0) mg/dL AST (15-37) U/L ALT (14-59) U/L Alkaline Phosphatase (46-116) U/L Total Protein (6.4-8.2) g/dL Albumin (3.4-5.0) g/dL Globulin Albumin/Globulin Ratio Urine Color Yellow (YELLOW) Urine Appearance Clear (CLEAR) Urine pH 6.5 (5.0-9.0) Ur Specific [place] 1.010 (1.005-1.030) Urine Protein Negative (NEGATIVE) Urine Glucose (UA) 500 H (NEGATIVE) Urine Ketones Negative (NEGATIVE) Urine Occult Blood Trace-intact H (NEGATIVE) Urine Nitrite Negative (NEGATIVE) Urine Bilirubin Negative (NEGATIVE) Urine Urobilinogen 0.2 (0.2-1.0) mg/dL Ur Leukocyte Esterase Negative (NEGATIVE) Urine RBC 0-5 /HPF Urine WBC 0-5 (0-5/HPF) /HPF Ur Epithelial Cells Few (NOT SEEN) /HPF Urine Bacteria Few (0-FEW/HPF) /HPF Urine Yeast Few H (NOT SEEN) /HPF Urine HCG, Qual Salicylates < 2.8 L (2.8-20(Therapeutic)) mg/dL Urine Opiates Screen (NEGATIVE) Ur Oxycodone Screen (NEGATIVE) Urine Methadone Screen (NEGATIVE) Acetaminophen (10-30 (Therapeutic)) ug/mL Ur Barbiturates Screen (NEGATIVE) U Tricyclic Antidepress (NEGATIVE) Ur Phencyclidine Scrn (NEGATIVE) Ur Amphetamine Screen (NEGATIVE) U Methamphetamines Scrn (NEGATIVE) Urine MDMA Screen (NEGATIVE) U Benzodiazepines Scrn (NEGATIVE) Urine Cocaine Screen (NEGATIVE) U Marijuana (THC) Screen (NEGATIVE) Ethyl Alcohol (0) mg/dL Ketones SARS-CoV-2 RNA (LIBBY) (NEGATIVE) 03/09/21 03/09/21 03/09/21 Range/Units 16:45 16:45 17:15 WBC (5.0-10.0) 10^3/uL RBC (4.2-5.4) 10^6/uL Hgb (12.0-16.0) g/dL Hct (37.0-47.0) % MCV (80-100) fL MCH (27.0-34.0) pg MCHC (33.0-35.0) g/dL Plt Count (150-450) 10^3/uL Neut % (Auto) (42.2-75.2) % Add Manual Diff Neutrophils % (Manual) (42-75) % Lymphocytes % (Manual) (20-50) % Monocytes % (Manual) (2-8) % Eosinophils % (Manual) (1-3) % Hypochromasia Anisocytosis Microcytosis Macrocytosis ABG pH 7.40 (7.35-7.45) ABG pCO2 38 (35-45) mmHg ABG pO2 90 (70-100) mmHg ABG HCO3 23.2 (22-26) mmol/L ABG O2 Saturation 99 (95-100) % ABG Base Excess -1 ((-2)-(+3)) mmol/L Vito Test Performed O2 Delivery Device Room air Sodium (136-145) mmol/L Potassium (3.5-5.1) mmol/L Chloride (98-107) mmol/L Carbon Dioxide (21-32) mmol/L Anion Gap (7-13) mEq/L BUN (7-18) mg/dL Creatinine (0.55-1.02) mg/dL Est Cr Clr Drug Dosing mL/min Estimated GFR (MDRD) BUN/Creatinine Ratio (No establ ref range) Glucose (70-99) mg/dL POC Glucose (70-99) mg/dL Lactic Acid (0.4-2.0) mmol/L Calcium (8.5-10.1) mg/dL Magnesium (1.8-2.4) mg/dL Total Bilirubin (0.2-1.0) mg/dL AST (15-37) U/L ALT (14-59) U/L Alkaline Phosphatase (46-116) U/L Total Protein (6.4-8.2) g/dL Albumin (3.4-5.0) g/dL Globulin Albumin/Globulin Ratio Urine Color (YELLOW) Urine Appearance (CLEAR) Urine pH (5.0-9.0) Ur Specific [place] (1.005-1.030) Urine Protein (NEGATIVE) Urine Glucose (UA) (NEGATIVE) Urine Ketones (NEGATIVE) Urine Occult Blood (NEGATIVE) Urine Nitrite (NEGATIVE) Urine Bilirubin (NEGATIVE) Urine Urobilinogen (0.2-1.0) mg/dL Ur Leukocyte Esterase (NEGATIVE) Urine RBC /HPF Urine WBC (0-5/HPF) /HPF Ur Epithelial Cells (NOT SEEN) /HPF Urine Bacteria (0-FEW/HPF) /HPF Urine Yeast (NOT SEEN) /HPF Urine HCG, Qual Negative Salicylates (2.8-20(Therapeutic)) mg/dL Urine Opiates Screen Negative (NEGATIVE) Ur Oxycodone Screen Negative (NEGATIVE) Urine Methadone Screen Negative (NEGATIVE) Acetaminophen (10-30 (Therapeutic)) ug/mL Ur Barbiturates Screen Negative (NEGATIVE) U Tricyclic Antidepress Negative (NEGATIVE) Ur Phencyclidine Scrn Negative (NEGATIVE) Ur Amphetamine Screen Negative (NEGATIVE) U Methamphetamines Scrn Negative (NEGATIVE) Urine MDMA Screen Negative (NEGATIVE) U Benzodiazepines Scrn Negative (NEGATIVE) Urine Cocaine Screen Negative (NEGATIVE) U Marijuana (THC) Screen Negative (NEGATIVE) Ethyl Alcohol (0) mg/dL Ketones SARS-CoV-2 RNA (LIBBY) (NEGATIVE) 03/09/21 03/09/21 Range/Units 18:42 19:00 WBC (5.0-10.0) 10^3/uL RBC (4.2-5.4) 10^6/uL Hgb (12.0-16.0) g/dL Hct (37.0-47.0) % MCV (80-100) fL MCH (27.0-34.0) pg MCHC (33.0-35.0) g/dL Plt Count (150-450) 10^3/uL Neut % (Auto) (42.2-75.2) % Add Manual Diff Neutrophils % (Manual) (42-75) % Lymphocytes % (Manual) (20-50) % Monocytes % (Manual) (2-8) % Eosinophils % (Manual) (1-3) % Hypochromasia Anisocytosis Microcytosis Macrocytosis ABG pH (7.35-7.45) ABG pCO2 (35-45) mmHg ABG pO2 (70-100) mmHg ABG HCO3 (22-26) mmol/L ABG O2 Saturation (95-100) % ABG Base Excess ((-2)-(+3)) mmol/L Vito Test O2 Delivery Device Sodium 140 D (136-145) mmol/L Potassium 2.7 L (3.5-5.1) mmol/L Chloride 103 (98-107) mmol/L Carbon Dioxide 24 (21-32) mmol/L Anion Gap 15.7 H (7-13) mEq/L BUN 4 L (7-18) mg/dL Creatinine 0.96 (0.55-1.02) mg/dL Est Cr Clr Drug Dosing 76.57 mL/min Estimated GFR (MDRD) > 60 BUN/Creatinine Ratio (No establ ref range) Glucose 291 H (70-99) mg/dL POC Glucose 368 H (70-99) mg/dL Lactic Acid (0.4-2.0) mmol/L Calcium 8.2 L (8.5-10.1) mg/dL Magnesium 1.6 L (1.8-2.4) mg/dL Total Bilirubin (0.2-1.0) mg/dL AST (15-37) U/L ALT (14-59) U/L Alkaline Phosphatase (46-116) U/L Total Protein (6.4-8.2) g/dL Albumin (3.4-5.0) g/dL Globulin Albumin/Globulin Ratio Urine Color (YELLOW) Urine Appearance (CLEAR) Urine pH (5.0-9.0) Ur Specific [place] (1.005-1.030) Urine Protein (NEGATIVE) Urine Glucose (UA) (NEGATIVE) Urine Ketones (NEGATIVE) Urine Occult Blood (NEGATIVE) Urine Nitrite (NEGATIVE) Urine Bilirubin (NEGATIVE) Urine Urobilinogen (0.2-1.0) mg/dL Ur Leukocyte Esterase (NEGATIVE) Urine RBC /HPF Urine WBC (0-5/HPF) /HPF Ur Epithelial Cells (NOT SEEN) /HPF Urine Bacteria (0-FEW/HPF) /HPF Urine Yeast (NOT SEEN) /HPF Urine HCG, Qual Salicylates (2.8-20(Therapeutic)) mg/dL Urine Opiates Screen (NEGATIVE) Ur Oxycodone Screen (NEGATIVE) Urine Methadone Screen (NEGATIVE) Acetaminophen (10-30 (Therapeutic)) ug/mL Ur Barbiturates Screen (NEGATIVE) U Tricyclic Antidepress (NEGATIVE) Ur Phencyclidine Scrn (NEGATIVE) Ur Amphetamine Screen (NEGATIVE) U Methamphetamines Scrn (NEGATIVE) Urine MDMA Screen (NEGATIVE) U Benzodiazepines Scrn (NEGATIVE) Urine Cocaine Screen (NEGATIVE) U Marijuana (THC) Screen (NEGATIVE) Ethyl Alcohol (0) mg/dL Ketones SARS-CoV-2 RNA (LIBBY) (NEGATIVE) Result Diagrams: 03/09/21 16:15 03/09/21 19:00 Problem List Initiated/Reviewed/Updated: Yes Orders Last 24hrs: Active Orders 24 hr Category Date Time Status Admission Diagnosis [ADT] Urgent ADT 03/09/21 18:03 Ordered Admission Status [Patient Status] [ADT] Routine ADT 03/09/21 18:03 Active Antiembolic Devices [RC] PER UNIT ROUTINE Care 03/09/21 20:06 Ordered Blood Glucose Check, Bedside [RC] Q4H Care 03/09/21 20:05 Ordered Peripheral IV Care [RC] . DIRECTED Care 03/09/21 20:06 Ordered Up ad Janis [RC] ASDIRECTED Care 03/09/21 20:05 Ordered Vital Signs [RC] Q4H Care 03/09/21 20:05 Ordered Consistent Carbohydrate Diet [DIET] Diet 03/09/21 Dinner Ordered CBC WITH AUTO DIFF [HEME] Routine Lab 03/10/21 05:00 Ordered CMP [COMPREHENSIVE METABOLIC PN,CMP] [CHEM] Routine Lab 03/10/21 05:00 Ordered CREATINE KINASE,CK [CHEM] Routine Lab 03/09/21 20:07 Ordered FERRITIN [CHEM] Routine Lab 03/09/21 20:08 Ordered GLYCOSYLATED HEMOGLOBIN,HGBA1C [CHEM] Routine Lab 03/09/21 20:09 Ordered INR,PT,PROTHROMBIN TIME [COAG] Routine Lab 03/10/21 05:00 Ordered IRON/TIBC [CHEM] Routine Lab 03/09/21 20:08 Ordered MAGNESIUM [CHEM] Routine Lab 03/10/21 05:00 Ordered OCCULT BLOOD DIAGNOSTIC [OP] Routine Lab 03/09/21 20:08 Ordered Dextrose 50% in Water Med 03/09/21 17:49 Active 50 ml IVPUSH Q15M PRN Dextrose 50% in Water Med 03/09/21 20:10 Ordered 50 ml IVPUSH Q15M PRN Glucagon,Human Recombinant [GlucaGen] Med 03/09/21 17:49 Active 1 mg IM Q15M PRN Glucagon,Human Recombinant [GlucaGen] Med 03/09/21 20:10 Ordered 1 mg IM Q15M PRN Insulin Glarg,Human.Rec.Analog [LantUS] Med 03/09/21 21:00 Ordered 12 unit SUBCUT BID Magnesium Sulfate/Water [Magnesium Sulfate in Water 2 Med 03/09/21 19:24 Active GM/50 ML] 2 gm Premix Bag 1 bag IV ONETIME Ondansetron [Zofran] Med 03/09/21 20:05 Ordered 4 mg IVPUSH Q4H PRN Potassium Chloride [Klor-Con 10] Med 03/09/21 20:15 Ordered 40 meq PO Q2H Sodium Chloride 0.45% @ 100 MLS/HR(1,000ml) Med 03/09/21 20:15 Ordered Sodium Chloride 0.45% 1,000 ml IV ASDIRECTED Sodium Chloride 0.9% [Saline Flush] Med 03/09/21 20:05 Ordered 10 ml FLUSH ASDIRECTED PRN lisinopriL [Prinivil] Med 03/10/21 09:00 Ordered 5 mg PO DAILY Peripheral IV Insertion Adult [OM.PC] Routine Oth 03/09/21 20:05 Ordered Sequential Compression Device [OM.PC] Per Unit Routine Oth 03/09/21 20:05 Ordered Resuscitation Status Routine Resus Stat 03/09/21 20:05 Ordered Medication Orders Dextrose/Water (50% Dextrose In Water 50 Ml Syringe) 50 ml IVPUSH Q15M PRN PRN Reason: Hypoglycemia Dextrose/Water (50% Dextrose In Water 50 Ml Syringe) 50 ml IVPUSH Q15M PRN PRN Reason: Hypoglycemia Glucagon (Glucagon,Human Recombinant 1 Mg Vial) 1 mg IM Q15M PRN PRN Reason: Hypoglycemia Glucagon (Glucagon,Human Recombinant 1 Mg Vial) 1 mg IM Q15M PRN PRN Reason: Hypoglycemia Magnesium Sulfate 2 gm/ Premix 50 mls @ 25 mls/hr IV ONETIME ONE Stop: 03/09/21 21:23 Last Admin: 03/09/21 19:39 Dose: 25 mls/hr Documented by: JERALD Sodium Chloride (Sodium Chloride 0.45%) 1,000 mls @ 100 mls/hr IV ASDIRECTED [facility] Insulin Glargine (Insulin Glarg,Human.Rec.Analog 100 Unit/Ml) 12 unit SUBCUT BID [facility] Lisinopril (Lisinopril 5 Mg Tab) 5 mg PO DAILY [facility] Ondansetron HCl (Ondansetron 4 Mg/2 Ml Sdv) 4 mg IVPUSH Q4H PRN PRN Reason: Nausea/Vomiting Potassium Chloride (Potassium Chloride 10 Meq Tab.Er) 40 meq PO Q2H HESHAM Stop: 03/09/21 22:16 Sodium Chloride (Sodium Chloride 0.9% 10 Ml Syringe) 10 ml FLUSH ASDIRECTED PRN PRN Reason: Keep Vein Open Assessment/Plan Comment:: Surgical History: C-sectionnumerous, appendectomy, cholecystectomy Family History: Cancer, stroke, diabetes, hypertension Social History: Tobacco: Active smoker Alcohol: Rare Caffeine: Coffee, tea, cola Drugs: Past marijuana use. Denies any other drug use past or present Allergies: No known drug allergies Code Status: Full Assessment / Plan: Diabetesrecently diagnosed. Will check fingerstick glucose every 4 hours and provide insulin sign scale plus Lantus 12 units of cutaneously twice daily plus IV half-normal saline at 100 mL/h plus lisinopril 5 mg p.o. daily for nephro protection. Depression Elevated liver function test. Will monitor LFTs periodically with CMP. Will monitor PT/INR periodically Hypokalemia. Will monitor potassium levels intermittently and supplement as necessary Thrombocytosis. Will monitor platelet count intermittently. IV half-normal saline 100 mL/h. Hypomagnesemia. Monitor magnesium levels intermittently and supplement as necessary Anemia, microcytic, chronic, history of iron deficiency. Will monitor hemoglobin levels intermittently. Check serum ferritin, iron panel, fecal occult blood. Patient has history of menorrhagia for which she will receive referral to obstetric/gynecology upon discharge as well as hematology/oncology Obesity. Patient counseled regarding lifestyle modification Smoker. Patient be counseled regarding smoking cessation Sexually-transmitted diseasenot otherwise specified. Will resume treatment DVT prophylaxis. Bilateral SCD Disposition: Anticipate discharge within 14 hours. At the time of admission, the patient so medications were pending input to the EMR/DHR system. Once their input, they will be reviewed and reconciled END OF DOCTOR EMAMIS HISTORY AND PHYSICAL / CONSULTATION NOTE
[2021-03-09] MEDS: Potassium Chloride 10 MEQ Tab.ER PO SCH ×2 (21:13→23:15)
[2021-03-09] MEDS: Insulin Glarg,Human.Rec.Analog 100 Unit/ML SUBCUT SCH (21:15)
[2021-03-09] MEDS: Insulin Lispro 100 Units/ML 3 ML Vial SUBCUT SCH (21:49)
[2021-03-10] MEDS: Insulin Lispro 100 Units/ML 3 ML Vial SUBCUT SCH ×3 (00:18→09:26)
[2021-03-10 07:14] LABS: CHLORIDE,CL 107 mmol/L (98-107); SODIUM,NA 141 mmol/L (136-145)
--- NOTE | 2021-03-10 07:25 | PCM.DCSUM1 ---
Discharge Summary - Hospital Course Free Text/Narrative:: START OF DOCTOR EMAMIS DISCHARGE SUMMARY Date of Admission: March 09, 2021 Date of Discharge: 7:21 AM on March 10, 2021 Primary Diagnosis: Hyperglycemia due to diabetesrecently diagnosed: Hemoglobin A1c is 13 Secondary Diagnosis: Depression Elevated liver function test, query whether this may be secondary to recent use of Valtrex Hypokalemia, resolved Thrombocytosis Hypomagnesemia, resolved Chronic anemia/iron deficiency anemia, patient has stated history of menorrhagia Obesity Smoker Genital herpes Consultations: None Condition on Discharge: Fair Disposition: The patient be advised to follow-up with her primary care physician or with a provider 5 to 7 days post discharge for evaluation of her fingerstick glucose log for which the patient has been advised to check fingerstick glucose 3 times a day before meals and at bedtime documenting both the time that her serum glucose was checked and the serum glucose number. The patient will also need to follow-up with her primary care physician or with a provider 5 to 7 days post discharge to follow-up on check of CMP and CBC with differential to be checked 3 days post discharge for diagnosis of transaminitis and anemia respectively Patient will require check of CMP 3 days post discharge for diagnosis of transaminitis The patient will require check of CBC with differential 3 days post discharge for diagnosis of anemia It is recommended that the patient follow-up with obstetrics/gynecology within 2 weeks of discharge for her history of menorrhagia with resultant anemia It is recommended that the patient follow-up with hematology/oncology within 2 weeks of discharge for her history of anemia Discharge Medications: Valtrex 1 g p.o. twice daily with an end date of the morning of March 11, 2021 Lisinopril 5 mg p.o. daily: This is for nephro protection due to her diabetes and this is not for hypertension Vitamin C 500 g p.o. daily Ferrous sulfate 3 and 25 mg p.o. twice daily Lantus 16 units subcutaneously twice daily Insulin lispro subcutaneously before every meal and at bedtime per sliding scale END OF DOCTOR EMAMIS DISCHARGE SUMMARY - Discharge Data Discharge Date: 03/10/21 Discharge Disposition: Home, Self-Care 01 Condition: Fair - Referral to Home Health Primary Care Physician: Rocael VILLARREAL [place] - Patient Instructions Diet: Diabetic Diet Activity: As Tolerated - Discharge Plan *PRESCRIPTION DRUG MONITORING PROGRAM REVIEWED*: Not Applicable *COPY OF PRESCRIPTION DRUG MONITORING REPORT IN PATIENT OTTONIEL: Not Applicable Prescriptions/Med Rec: Ferrous Sulfate 325 mg PO BIDMEALS 30 Days #60 tablet Insulin Lispro 100 unit SQ WITHMEALSANDBED 30 Days #1 ml Insulin Glarg,Human.Rec.Analog [Lantus] 16 unit SQ BID 30 Days #1 ml lisinopriL [Prinivil] 5 mg PO DAILY 30 Days #30 tablet Ascorbic Acid [Vitamin C] 500 mg PO DAILY 30 Days #30 tablet Home Medications: Home Meds Ascorbic Acid [Vitamin C] 500 mg PO DAILY 30 Days #30 tablet 03/10/21 [Rx] Ferrous Sulfate 325 mg PO BIDMEALS 30 Days #60 tablet 03/10/21 [Rx] Insulin Glarg,Human.Rec.Analog [Lantus] 16 unit SQ BID 30 Days #1 ml 03/10/21 [Rx] Insulin Lispro 100 unit SQ WITHMEALSANDBED 30 Days #1 ml 03/10/21 [Rx] lisinopriL [Prinivil] 5 mg PO DAILY 30 Days #30 tablet 03/10/21 [Rx] valACYclovir [Valtrex] 1 gram PO BID 03/10/21 [Rx] Patient Handouts: Type 2 Diabetes Mellitus, Diagnosis, Adult, Ascorbic Acid, Vitamin C tablet, Iron tablets, capsules, extended-release tablets, Hyperglycemia, [id number], Lisinopril tablets, Insulin Glargine injection, Insulin Lispro injection Referrals: [facility] [Primary Care Provider] - - Discharge Summary/Plan Comment DC Time >30 min.: Yes - General Info Date of Service: 03/10/21 - Review of Systems General: Reports: No Symptoms HEENT: Reports: No Symptoms Pulmonary: Reports: No Symptoms Cardiovascular: Reports: No Symptoms Gastrointestinal: Reports: No Symptoms Genitourinary: Reports: No Symptoms Musculoskeletal: Reports: No Symptoms Skin: Reports: No Symptoms Neurological: Reports: No Symptoms Psychiatric: Reports: No Symptoms - Patient Data Vitals - Most Recent: Last Vital Signs Temp 98.9 F 03/10/21 04:00 Pulse 83 03/10/21 04:00 Resp 18 03/10/21 04:00 BP 111/55 L 03/10/21 04:00 Pulse Ox 97 03/10/21 04:00 Weight - Most Recent: 254 lb 1.6 oz I&O - Last 24 hours: Intake & Output 03/09/21 03/10/21 03/10/21 22:59 06:59 14:59 Intake Total 50 400 Output Total 800 200 Balance -750 200 Lab Results - Last 24 hrs: Laboratory Results - last 24 hr 03/09/21 03/09/21 03/09/21 Range/Units 16:00 16:15 16:15 WBC 14.0 H (5.0-10.0) 10^3/uL RBC 4.75 (4.2-5.4) 10^6/uL Hgb 8.7 L D (12.0-16.0) g/dL Hct 30.1 L (37.0-47.0) % MCV 63.4 L (80-100) fL MCH 18.3 L (27.0-34.0) pg MCHC 28.9 L (33.0-35.0) g/dL Plt Count 741 H D (150-450) 10^3/uL Neut % (Auto) (42.2-75.2) % Lymph % (Auto) (20.5-50.1) % [place] % (Auto) (2-8) % Eos % (Auto) (1.0-3.0) % Baso % (Auto) (0.0-1.0) % Add Manual Diff Yes Neutrophils % (Manual) 60 (42-75) % Lymphocytes % (Manual) 28 (20-50) % Monocytes % (Manual) 7 (2-8) % Eosinophils % (Manual) 5 H (1-3) % Hypochromasia 3+ marked Anisocytosis 2+ moderate Microcytosis 1+ slight Macrocytosis 1+ slight PT (9.0-12.0) SEC INR (0.9-1.2) ABG pH (7.35-7.45) ABG pCO2 (35-45) mmHg ABG pO2 (70-100) mmHg ABG HCO3 (22-26) mmol/L ABG O2 Saturation (95-100) % ABG Base Excess ((-2)-(+3)) mmol/L Vito Test O2 Delivery Device Sodium 130 L (136-145) mmol/L Potassium 3.4 L (3.5-5.1) mmol/L Chloride 92 L (98-107) mmol/L Carbon Dioxide 25 (21-32) mmol/L Anion Gap 16.4 H (7-13) mEq/L BUN 6 L (7-18) mg/dL Creatinine 1.15 H (0.55-1.02) mg/dL Est Cr Clr Drug Dosing 63.92 mL/min Estimated GFR (MDRD) 54 BUN/Creatinine Ratio 5.2 (No establ ref range) Glucose 786 H* (70-99) mg/dL POC Glucose (70-99) mg/dL Hemoglobin A1c (<5.7) % Lactic Acid (0.4-2.0) mmol/L Calcium 8.7 (8.5-10.1) mg/dL Magnesium 1.9 (1.8-2.4) mg/dL Iron (50-175) ug/dL TIBC (250-450) ug/dL % Saturation (20.0-50.0) % Ferritin (8-252) mg/mL Total Bilirubin 0.6 (0.2-1.0) mg/dL AST 49 H (15-37) U/L ALT 63 H (14-59) U/L Alkaline Phosphatase 161 H (46-116) U/L Creatine Kinase (16-191) U/L Total Protein 8.5 H (6.4-8.2) g/dL Albumin 3.5 (3.4-5.0) g/dL Globulin 5.0 Albumin/Globulin Ratio 0.7 Urine Color (YELLOW) Urine Appearance (CLEAR) Urine pH (5.0-9.0) Ur Specific [place] (1.005-1.030) Urine Protein (NEGATIVE) Urine Glucose (UA) (NEGATIVE) Urine Ketones (NEGATIVE) Urine Occult Blood (NEGATIVE) Urine Nitrite (NEGATIVE) Urine Bilirubin (NEGATIVE) Urine Urobilinogen (0.2-1.0) mg/dL Ur Leukocyte Esterase (NEGATIVE) Urine RBC /HPF Urine WBC (0-5/HPF) /HPF Ur Epithelial Cells (NOT SEEN) /HPF Urine Bacteria (0-FEW/HPF) /HPF Urine Yeast (NOT SEEN) /HPF Urine HCG, Qual Salicylates (2.8-20(Therapeutic)) mg/dL Urine Opiates Screen (NEGATIVE) Ur Oxycodone Screen (NEGATIVE) Urine Methadone Screen (NEGATIVE) Acetaminophen 0 L (10-30 (Therapeutic)) ug/mL Ur Barbiturates Screen (NEGATIVE) U Tricyclic Antidepress (NEGATIVE) Ur Phencyclidine Scrn (NEGATIVE) Ur Amphetamine Screen (NEGATIVE) U Methamphetamines Scrn (NEGATIVE) Urine MDMA Screen (NEGATIVE) U Benzodiazepines Scrn (NEGATIVE) Urine Cocaine Screen (NEGATIVE) U Marijuana (THC) Screen (NEGATIVE) Ethyl Alcohol < 3 (0) mg/dL Ketones Small-20 mg/dl SARS-CoV-2 RNA (LIBBY) Negative (NEGATIVE) 03/09/21 03/09/21 03/09/21 Range/Units 16:15 16:15 16:15 WBC (5.0-10.0) 10^3/uL RBC (4.2-5.4) 10^6/uL Hgb (12.0-16.0) g/dL Hct (37.0-47.0) % MCV (80-100) fL MCH (27.0-34.0) pg MCHC (33.0-35.0) g/dL Plt Count (150-450) 10^3/uL Neut % (Auto) (42.2-75.2) % Lymph % (Auto) (20.5-50.1) % [place] % (Auto) (2-8) % Eos % (Auto) (1.0-3.0) % Baso % (Auto) (0.0-1.0) % Add Manual Diff Neutrophils % (Manual) (42-75) % Lymphocytes % (Manual) (20-50) % Monocytes % (Manual) (2-8) % Eosinophils % (Manual) (1-3) % Hypochromasia Anisocytosis Microcytosis Macrocytosis PT (9.0-12.0) SEC INR (0.9-1.2) ABG pH (7.35-7.45) ABG pCO2 (35-45) mmHg ABG pO2 (70-100) mmHg ABG HCO3 (22-26) mmol/L ABG O2 Saturation (95-100) % ABG Base Excess ((-2)-(+3)) mmol/L Vito Test O2 Delivery Device Sodium (136-145) mmol/L Potassium (3.5-5.1) mmol/L Chloride (98-107) mmol/L Carbon Dioxide (21-32) mmol/L Anion Gap (7-13) mEq/L BUN (7-18) mg/dL Creatinine (0.55-1.02) mg/dL Est Cr Clr Drug Dosing mL/min Estimated GFR (MDRD) BUN/Creatinine Ratio (No establ ref range) Glucose (70-99) mg/dL POC Glucose (70-99) mg/dL Hemoglobin A1c 13.0 H (<5.7) % Lactic Acid (0.4-2.0) mmol/L Calcium (8.5-10.1) mg/dL Magnesium (1.8-2.4) mg/dL Iron 16 L (50-175) ug/dL TIBC 422 (250-450) ug/dL % Saturation 3.8 L (20.0-50.0) % Ferritin 8 (8-252) mg/mL Total Bilirubin (0.2-1.0) mg/dL AST (15-37) U/L ALT (14-59) U/L Alkaline Phosphatase (46-116) U/L Creatine Kinase (16-191) U/L Total Protein (6.4-8.2) g/dL Albumin (3.4-5.0) g/dL Globulin Albumin/Globulin Ratio Urine Color (YELLOW) Urine Appearance (CLEAR) Urine pH (5.0-9.0) Ur Specific [place] (1.005-1.030) Urine Protein (NEGATIVE) Urine Glucose (UA) (NEGATIVE) Urine Ketones (NEGATIVE) Urine Occult Blood (NEGATIVE) Urine Nitrite (NEGATIVE) Urine Bilirubin (NEGATIVE) Urine Urobilinogen (0.2-1.0) mg/dL Ur Leukocyte Esterase (NEGATIVE) Urine RBC /HPF Urine WBC (0-5/HPF) /HPF Ur Epithelial Cells (NOT SEEN) /HPF Urine Bacteria (0-FEW/HPF) /HPF Urine Yeast (NOT SEEN) /HPF Urine HCG, Qual Salicylates < 2.8 L (2.8-20(Therapeutic)) mg/dL Urine Opiates Screen (NEGATIVE) Ur Oxycodone Screen (NEGATIVE) Urine Methadone Screen (NEGATIVE) Acetaminophen (10-30 (Therapeutic)) ug/mL Ur Barbiturates Screen (NEGATIVE) U Tricyclic Antidepress (NEGATIVE) Ur Phencyclidine Scrn (NEGATIVE) Ur Amphetamine Screen (NEGATIVE) U Methamphetamines Scrn (NEGATIVE) Urine MDMA Screen (NEGATIVE) U Benzodiazepines Scrn (NEGATIVE) Urine Cocaine Screen (NEGATIVE) U Marijuana (THC) Screen (NEGATIVE) Ethyl Alcohol (0) mg/dL Ketones SARS-CoV-2 RNA (LIBBY) (NEGATIVE) 03/09/21 03/09/21 03/09/21 Range/Units 16:41 16:45 16:45 WBC (5.0-10.0) 10^3/uL RBC (4.2-5.4) 10^6/uL Hgb (12.0-16.0) g/dL Hct (37.0-47.0) % MCV (80-100) fL MCH (27.0-34.0) pg MCHC (33.0-35.0) g/dL Plt Count (150-450) 10^3/uL Neut % (Auto) (42.2-75.2) % Lymph % (Auto) (20.5-50.1) % [place] % (Auto) (2-8) % Eos % (Auto) (1.0-3.0) % Baso % (Auto) (0.0-1.0) % Add Manual Diff Neutrophils % (Manual) (42-75) % Lymphocytes % (Manual) (20-50) % Monocytes % (Manual) (2-8) % Eosinophils % (Manual) (1-3) % Hypochromasia Anisocytosis Microcytosis Macrocytosis PT (9.0-12.0) SEC INR (0.9-1.2) ABG pH (7.35-7.45) ABG pCO2 (35-45) mmHg ABG pO2 (70-100) mmHg ABG HCO3 (22-26) mmol/L ABG O2 Saturation (95-100) % ABG Base Excess ((-2)-(+3)) mmol/L Vito Test O2 Delivery Device Sodium (136-145) mmol/L Potassium (3.5-5.1) mmol/L Chloride (98-107) mmol/L Carbon Dioxide (21-32) mmol/L Anion Gap (7-13) mEq/L BUN (7-18) mg/dL Creatinine (0.55-1.02) mg/dL Est Cr Clr Drug Dosing mL/min Estimated GFR (MDRD) BUN/Creatinine Ratio (No establ ref range) Glucose (70-99) mg/dL POC Glucose (70-99) mg/dL Hemoglobin A1c (<5.7) % Lactic Acid 1.6 (0.4-2.0) mmol/L Calcium (8.5-10.1) mg/dL Magnesium (1.8-2.4) mg/dL Iron (50-175) ug/dL TIBC (250-450) ug/dL % Saturation (20.0-50.0) % Ferritin (8-252) mg/mL Total Bilirubin (0.2-1.0) mg/dL AST (15-37) U/L ALT (14-59) U/L Alkaline Phosphatase (46-116) U/L Creatine Kinase (16-191) U/L Total Protein (6.4-8.2) g/dL Albumin (3.4-5.0) g/dL Globulin Albumin/Globulin Ratio Urine Color Yellow (YELLOW) Urine Appearance Clear (CLEAR) Urine pH 6.5 (5.0-9.0) Ur Specific [place] 1.010 (1.005-1.030) Urine Protein Negative (NEGATIVE) Urine Glucose (UA) 500 H (NEGATIVE) Urine Ketones Negative (NEGATIVE) Urine Occult Blood Trace-intact H (NEGATIVE) Urine Nitrite Negative (NEGATIVE) Urine Bilirubin Negative (NEGATIVE) Urine Urobilinogen 0.2 (0.2-1.0) mg/dL Ur Leukocyte Esterase Negative (NEGATIVE) Urine RBC 0-5 /HPF Urine WBC 0-5 (0-5/HPF) /HPF Ur Epithelial Cells Few (NOT SEEN) /HPF Urine Bacteria Few (0-FEW/HPF) /HPF Urine Yeast Few H (NOT SEEN) /HPF Urine HCG, Qual Negative Salicylates (2.8-20(Therapeutic)) mg/dL Urine Opiates Screen (NEGATIVE) Ur Oxycodone Screen (NEGATIVE) Urine Methadone Screen (NEGATIVE) Acetaminophen (10-30 (Therapeutic)) ug/mL Ur Barbiturates Screen (NEGATIVE) U Tricyclic Antidepress (NEGATIVE) Ur Phencyclidine Scrn (NEGATIVE) Ur Amphetamine Screen (NEGATIVE) U Methamphetamines Scrn (NEGATIVE) Urine MDMA Screen (NEGATIVE) U Benzodiazepines Scrn (NEGATIVE) Urine Cocaine Screen (NEGATIVE) U Marijuana (THC) Screen (NEGATIVE) Ethyl Alcohol (0) mg/dL Ketones SARS-CoV-2 RNA (LIBBY) (NEGATIVE) 03/09/21 03/09/21 03/09/21 Range/Units 16:45 17:15 18:42 WBC (5.0-10.0) 10^3/uL RBC (4.2-5.4) 10^6/uL Hgb (12.0-16.0) g/dL Hct (37.0-47.0) % MCV (80-100) fL MCH (27.0-34.0) pg MCHC (33.0-35.0) g/dL Plt Count (150-450) 10^3/uL Neut % (Auto) (42.2-75.2) % Lymph % (Auto) (20.5-50.1) % [place] % (Auto) (2-8) % Eos % (Auto) (1.0-3.0) % Baso % (Auto) (0.0-1.0) % Add Manual Diff Neutrophils % (Manual) (42-75) % Lymphocytes % (Manual) (20-50) % Monocytes % (Manual) (2-8) % Eosinophils % (Manual) (1-3) % Hypochromasia Anisocytosis Microcytosis Macrocytosis PT (9.0-12.0) SEC INR (0.9-1.2) ABG pH 7.40 (7.35-7.45) ABG pCO2 38 (35-45) mmHg ABG pO2 90 (70-100) mmHg ABG HCO3 23.2 (22-26) mmol/L ABG O2 Saturation 99 (95-100) % ABG Base Excess -1 ((-2)-(+3)) mmol/L Vito Test Performed O2 Delivery Device Room air Sodium (136-145) mmol/L Potassium (3.5-5.1) mmol/L Chloride (98-107) mmol/L Carbon Dioxide (21-32) mmol/L Anion Gap (7-13) mEq/L BUN (7-18) mg/dL Creatinine (0.55-1.02) mg/dL Est Cr Clr Drug Dosing mL/min Estimated GFR (MDRD) BUN/Creatinine Ratio (No establ ref range) Glucose (70-99) mg/dL POC Glucose 368 H (70-99) mg/dL Hemoglobin A1c (<5.7) % Lactic Acid (0.4-2.0) mmol/L Calcium (8.5-10.1) mg/dL Magnesium (1.8-2.4) mg/dL Iron (50-175) ug/dL TIBC (250-450) ug/dL % Saturation (20.0-50.0) % Ferritin (8-252) mg/mL Total Bilirubin (0.2-1.0) mg/dL AST (15-37) U/L ALT (14-59) U/L Alkaline Phosphatase (46-116) U/L Creatine Kinase (16-191) U/L Total Protein (6.4-8.2) g/dL Albumin (3.4-5.0) g/dL Globulin Albumin/Globulin Ratio Urine Color (YELLOW) Urine Appearance (CLEAR) Urine pH (5.0-9.0) Ur Specific [place] (1.005-1.030) Urine Protein (NEGATIVE) Urine Glucose (UA) (NEGATIVE) Urine Ketones (NEGATIVE) Urine Occult Blood (NEGATIVE) Urine Nitrite (NEGATIVE) Urine Bilirubin (NEGATIVE) Urine Urobilinogen (0.2-1.0) mg/dL Ur Leukocyte Esterase (NEGATIVE) Urine RBC /HPF Urine WBC (0-5/HPF) /HPF Ur Epithelial Cells (NOT SEEN) /HPF Urine Bacteria (0-FEW/HPF) /HPF Urine Yeast (NOT SEEN) /HPF Urine HCG, Qual Salicylates (2.8-20(Therapeutic)) mg/dL Urine Opiates Screen Negative (NEGATIVE) Ur Oxycodone Screen Negative (NEGATIVE) Urine Methadone Screen Negative (NEGATIVE) Acetaminophen (10-30 (Therapeutic)) ug/mL Ur Barbiturates Screen Negative (NEGATIVE) U Tricyclic Antidepress Negative (NEGATIVE) Ur Phencyclidine Scrn Negative (NEGATIVE) Ur Amphetamine Screen Negative (NEGATIVE) U Methamphetamines Scrn Negative (NEGATIVE) Urine MDMA Screen Negative (NEGATIVE) U Benzodiazepines Scrn Negative (NEGATIVE) Urine Cocaine Screen Negative (NEGATIVE) U Marijuana (THC) Screen Negative (NEGATIVE) Ethyl Alcohol (0) mg/dL Ketones SARS-CoV-2 RNA (LIBBY) (NEGATIVE) 03/09/21 03/09/21 03/09/21 Range/Units 19:00 19:00 19:59 WBC (5.0-10.0) 10^3/uL RBC (4.2-5.4) 10^6/uL Hgb (12.0-16.0) g/dL Hct (37.0-47.0) % MCV (80-100) fL MCH (27.0-34.0) pg MCHC (33.0-35.0) g/dL Plt Count (150-450) 10^3/uL Neut % (Auto) (42.2-75.2) % Lymph % (Auto) (20.5-50.1) % [place] % (Auto) (2-8) % Eos % (Auto) (1.0-3.0) % Baso % (Auto) (0.0-1.0) % Add Manual Diff Neutrophils % (Manual) (42-75) % Lymphocytes % (Manual) (20-50) % Monocytes % (Manual) (2-8) % Eosinophils % (Manual) (1-3) % Hypochromasia Anisocytosis Microcytosis Macrocytosis PT (9.0-12.0) SEC INR (0.9-1.2) ABG pH (7.35-7.45) ABG pCO2 (35-45) mmHg ABG pO2 (70-100) mmHg ABG HCO3 (22-26) mmol/L ABG O2 Saturation (95-100) % ABG Base Excess ((-2)-(+3)) mmol/L Vito Test O2 Delivery Device Sodium 140 D (136-145) mmol/L Potassium 2.7 L (3.5-5.1) mmol/L Chloride 103 (98-107) mmol/L Carbon Dioxide 24 (21-32) mmol/L Anion Gap 15.7 H (7-13) mEq/L BUN 4 L (7-18) mg/dL Creatinine 0.96 (0.55-1.02) mg/dL Est Cr Clr Drug Dosing 76.57 mL/min Estimated GFR (MDRD) > 60 BUN/Creatinine Ratio (No establ ref range) Glucose 291 H (70-99) mg/dL POC Glucose 176 H (70-99) mg/dL Hemoglobin A1c (<5.7) % Lactic Acid (0.4-2.0) mmol/L Calcium 8.2 L (8.5-10.1) mg/dL Magnesium 1.6 L (1.8-2.4) mg/dL Iron (50-175) ug/dL TIBC (250-450) ug/dL % Saturation (20.0-50.0) % Ferritin (8-252) mg/mL Total Bilirubin (0.2-1.0) mg/dL AST (15-37) U/L ALT (14-59) U/L Alkaline Phosphatase (46-116) U/L Creatine Kinase 132 (16-191) U/L Total Protein (6.4-8.2) g/dL Albumin (3.4-5.0) g/dL Globulin Albumin/Globulin Ratio Urine Color (YELLOW) Urine Appearance (CLEAR) Urine pH (5.0-9.0) Ur Specific [place] (1.005-1.030) Urine Protein (NEGATIVE) Urine Glucose (UA) (NEGATIVE) Urine Ketones (NEGATIVE) Urine Occult Blood (NEGATIVE) Urine Nitrite (NEGATIVE) Urine Bilirubin (NEGATIVE) Urine Urobilinogen (0.2-1.0) mg/dL Ur Leukocyte Esterase (NEGATIVE) Urine RBC /HPF Urine WBC (0-5/HPF) /HPF Ur Epithelial Cells (NOT SEEN) /HPF Urine Bacteria (0-FEW/HPF) /HPF Urine Yeast (NOT SEEN) /HPF Urine HCG, Qual Salicylates (2.8-20(Therapeutic)) mg/dL Urine Opiates Screen (NEGATIVE) Ur Oxycodone Screen (NEGATIVE) Urine Methadone Screen (NEGATIVE) Acetaminophen (10-30 (Therapeutic)) ug/mL Ur Barbiturates Screen (NEGATIVE) U Tricyclic Antidepress (NEGATIVE) Ur Phencyclidine Scrn (NEGATIVE) Ur Amphetamine Screen (NEGATIVE) U Methamphetamines Scrn (NEGATIVE) Urine MDMA Screen (NEGATIVE) U Benzodiazepines Scrn (NEGATIVE) Urine Cocaine Screen (NEGATIVE) U Marijuana (THC) Screen (NEGATIVE) Ethyl Alcohol (0) mg/dL Ketones SARS-CoV-2 RNA (LIBBY) (NEGATIVE) 03/09/21 03/10/21 03/10/21 Range/Units 23:19 04:18 06:36 WBC (5.0-10.0) 10^3/uL RBC (4.2-5.4) 10^6/uL Hgb (12.0-16.0) g/dL Hct (37.0-47.0) % MCV (80-100) fL MCH (27.0-34.0) pg MCHC (33.0-35.0) g/dL Plt Count (150-450) 10^3/uL Neut % (Auto) (42.2-75.2) % Lymph % (Auto) (20.5-50.1) % [place] % (Auto) (2-8) % Eos % (Auto) (1.0-3.0) % Baso % (Auto) (0.0-1.0) % Add Manual Diff Neutrophils % (Manual) (42-75) % Lymphocytes % (Manual) (20-50) % Monocytes % (Manual) (2-8) % Eosinophils % (Manual) (1-3) % Hypochromasia Anisocytosis Microcytosis Macrocytosis PT 11.0 (9.0-12.0) SEC INR 1.1 (0.9-1.2) ABG pH (7.35-7.45) ABG pCO2 (35-45) mmHg ABG pO2 (70-100) mmHg ABG HCO3 (22-26) mmol/L ABG O2 Saturation (95-100) % ABG Base Excess ((-2)-(+3)) mmol/L Vito Test O2 Delivery Device Sodium (136-145) mmol/L Potassium (3.5-5.1) mmol/L Chloride (98-107) mmol/L Carbon Dioxide (21-32) mmol/L Anion Gap (7-13) mEq/L BUN (7-18) mg/dL Creatinine (0.55-1.02) mg/dL Est Cr Clr Drug Dosing mL/min Estimated GFR (MDRD) BUN/Creatinine Ratio (No establ ref range) Glucose (70-99) mg/dL POC Glucose 283 H 228 H (70-99) mg/dL Hemoglobin A1c (<5.7) % Lactic Acid (0.4-2.0) mmol/L Calcium (8.5-10.1) mg/dL Magnesium (1.8-2.4) mg/dL Iron (50-175) ug/dL TIBC (250-450) ug/dL % Saturation (20.0-50.0) % Ferritin (8-252) mg/mL Total Bilirubin (0.2-1.0) mg/dL AST (15-37) U/L ALT (14-59) U/L Alkaline Phosphatase (46-116) U/L Creatine Kinase (16-191) U/L Total Protein (6.4-8.2) g/dL Albumin (3.4-5.0) g/dL Globulin Albumin/Globulin Ratio Urine Color (YELLOW) Urine Appearance (CLEAR) Urine pH (5.0-9.0) Ur Specific [place] (1.005-1.030) Urine Protein (NEGATIVE) Urine Glucose (UA) (NEGATIVE) Urine Ketones (NEGATIVE) Urine Occult Blood (NEGATIVE) Urine Nitrite (NEGATIVE) Urine Bilirubin (NEGATIVE) Urine Urobilinogen (0.2-1.0) mg/dL Ur Leukocyte Esterase (NEGATIVE) Urine RBC /HPF Urine WBC (0-5/HPF) /HPF Ur Epithelial Cells (NOT SEEN) /HPF Urine Bacteria (0-FEW/HPF) /HPF Urine Yeast (NOT SEEN) /HPF Urine HCG, Qual Salicylates (2.8-20(Therapeutic)) mg/dL Urine Opiates Screen (NEGATIVE) Ur Oxycodone Screen (NEGATIVE) Urine Methadone Screen (NEGATIVE) Acetaminophen (10-30 (Therapeutic)) ug/mL Ur Barbiturates Screen (NEGATIVE) U Tricyclic Antidepress (NEGATIVE) Ur Phencyclidine Scrn (NEGATIVE) Ur Amphetamine Screen (NEGATIVE) U Methamphetamines Scrn (NEGATIVE) Urine MDMA Screen (NEGATIVE) U Benzodiazepines Scrn (NEGATIVE) Urine Cocaine Screen (NEGATIVE) U Marijuana (THC) Screen (NEGATIVE) Ethyl Alcohol (0) mg/dL Ketones SARS-CoV-2 RNA (LIBBY) (NEGATIVE) 03/10/21 03/10/21 Range/Units 06:36 06:36 WBC 10.0 (5.0-10.0) 10^3/uL RBC 4.27 (4.2-5.4) 10^6/uL Hgb 7.8 L (12.0-16.0) g/dL Hct 27.2 L (37.0-47.0) % MCV 63.7 L (80-100) fL MCH 18.3 L (27.0-34.0) pg MCHC 28.7 L (33.0-35.0) g/dL Plt Count 627 H D (150-450) 10^3/uL Neut % (Auto) 57.1 (42.2-75.2) % Lymph % (Auto) 30.3 (20.5-50.1) % [place] % (Auto) 5.1 (2-8) % Eos % (Auto) 6.4 H (1.0-3.0) % Baso % (Auto) 1.1 H (0.0-1.0) % Add Manual Diff Neutrophils % (Manual) (42-75) % Lymphocytes % (Manual) (20-50) % Monocytes % (Manual) (2-8) % Eosinophils % (Manual) (1-3) % Hypochromasia Anisocytosis Microcytosis Macrocytosis PT (9.0-12.0) SEC INR (0.9-1.2) ABG pH (7.35-7.45) ABG pCO2 (35-45) mmHg ABG pO2 (70-100) mmHg ABG HCO3 (22-26) mmol/L ABG O2 Saturation (95-100) % ABG Base Excess ((-2)-(+3)) mmol/L Vito Test O2 Delivery Device Sodium 141 (136-145) mmol/L Potassium 4.0 (3.5-5.1) mmol/L Chloride 107 (98-107) mmol/L Carbon Dioxide 26 (21-32) mmol/L Anion Gap 12.0 (7-13) mEq/L BUN 6 L (7-18) mg/dL Creatinine 0.68 (0.55-1.02) mg/dL Est Cr Clr Drug Dosing 120.68 mL/min Estimated GFR (MDRD) > 60 BUN/Creatinine Ratio 8.8 (No establ ref range) Glucose 256 H (70-99) mg/dL POC Glucose (70-99) mg/dL Hemoglobin A1c (<5.7) % Lactic Acid (0.4-2.0) mmol/L Calcium 7.3 L (8.5-10.1) mg/dL Magnesium 1.9 (1.8-2.4) mg/dL Iron (50-175) ug/dL TIBC (250-450) ug/dL % Saturation (20.0-50.0) % Ferritin (8-252) mg/mL Total Bilirubin 0.4 (0.2-1.0) mg/dL AST 104 H (15-37) U/L ALT 65 H (14-59) U/L Alkaline Phosphatase 93 (46-116) U/L Creatine Kinase (16-191) U/L Total Protein 6.2 L (6.4-8.2) g/dL Albumin 2.5 L (3.4-5.0) g/dL Globulin 3.7 Albumin/Globulin Ratio 0.68 Urine Color (YELLOW) Urine Appearance (CLEAR) Urine pH (5.0-9.0) Ur Specific [place] (1.005-1.030) Urine Protein (NEGATIVE) Urine Glucose (UA) (NEGATIVE) Urine Ketones (NEGATIVE) Urine Occult Blood (NEGATIVE) Urine Nitrite (NEGATIVE) Urine Bilirubin (NEGATIVE) Urine Urobilinogen (0.2-1.0) mg/dL Ur Leukocyte Esterase (NEGATIVE) Urine RBC /HPF Urine WBC (0-5/HPF) /HPF Ur Epithelial Cells (NOT SEEN) /HPF Urine Bacteria (0-FEW/HPF) /HPF Urine Yeast (NOT SEEN) /HPF Urine HCG, Qual Salicylates (2.8-20(Therapeutic)) mg/dL Urine Opiates Screen (NEGATIVE) Ur Oxycodone Screen (NEGATIVE) Urine Methadone Screen (NEGATIVE) Acetaminophen (10-30 (Therapeutic)) ug/mL Ur Barbiturates Screen (NEGATIVE) U Tricyclic Antidepress (NEGATIVE) Ur Phencyclidine Scrn (NEGATIVE) Ur Amphetamine Screen (NEGATIVE) U Methamphetamines Scrn (NEGATIVE) Urine MDMA Screen (NEGATIVE) U Benzodiazepines Scrn (NEGATIVE) Urine Cocaine Screen (NEGATIVE) U Marijuana (THC) Screen (NEGATIVE) Ethyl Alcohol (0) mg/dL Ketones SARS-CoV-2 RNA (LIBBY) (NEGATIVE) Med Orders - Current: Current Medications Ascorbic Acid (Ascorbic Acid 500 Mg Tab) 500 mg PO DAILY [facility] Dextrose/Water (50% Dextrose In Water 50 Ml Syringe) 50 ml IVPUSH Q15M PRN PRN Reason: Hypoglycemia Dextrose/Water (50% Dextrose In Water 50 Ml Syringe) 50 ml IVPUSH Q15M PRN PRN Reason: Hypoglycemia Ferrous Sulfate (Ferrous Sulfate 325 Mg Tab) 325 mg PO BIDMEALS [facility] Glucagon (Glucagon,Human Recombinant 1 Mg Vial) 1 mg IM Q15M PRN PRN Reason: Hypoglycemia Glucagon (Glucagon,Human Recombinant 1 Mg Vial) 1 mg IM Q15M PRN PRN Reason: Hypoglycemia Insulin Glargine (Insulin Glarg,Human.Rec.Analog 100 Unit/Ml) 12 unit SUBCUT BID [facility] Last Admin: 03/09/21 21:15 Dose: 12 units Documented by: Insulin Human Lispro (Insulin Lispro 100 Units/Ml 3 Ml Vial) 0 unit SUBCUT Q4H [facility]; Protocol Last Admin: 03/10/21 04:18 Dose: 2 unit Documented by: Lisinopril (Lisinopril 5 Mg Tab) 5 mg PO DAILY CRITICAL ACCESS [facility] Non-Formulary Medication (Valacyclovir [Valtrex]) 1 gram PO BID [facility] Ondansetron HCl (Ondansetron 4 Mg/2 Ml Sdv) 4 mg IVPUSH Q4H PRN PRN Reason: Nausea/Vomiting Sodium Chloride (Sodium Chloride 0.9% 10 Ml Syringe) 10 ml FLUSH ASDIRECTED PRN PRN Reason: Keep Vein Open Discontinued Medications Dextrose/Water (50% Dextrose In Water 50 Ml Syringe) 50 ml IVPUSH Q15M PRN PRN Reason: Hypoglycemia Glucagon (Glucagon,Human Recombinant 1 Mg Vial) 1 mg IM Q15M PRN PRN Reason: Hypoglycemia Sodium Chloride (Normal Saline) 1,000 mls @ 999 mls/hr IV .BOLUS ONE Stop: 03/09/21 18:03 Last Admin: 03/09/21 17:07 Dose: 999 mls/hr Documented by: Sodium Chloride (Normal Saline) 1,000 mls @ 999 mls/hr IV .BOLUS ONE Stop: 03/09/21 19:40 Last Admin: 03/09/21 18:48 Dose: 999 mls/hr Documented by: Potassium Chloride 10 meq/ (Premix) 100 mls @ 100 mls/hr IV ONETIME ONE Stop: 03/09/21 20:22 Last Admin: 03/09/21 19:38 Dose: 100 mls/hr Documented by: Magnesium Sulfate 2 gm/ Premix 50 mls @ 25 mls/hr IV ONETIME ONE Stop: 03/09/21 21:23 Last Admin: 03/09/21 19:39 Dose: 25 mls/hr Documented by: Sodium Chloride (Sodium Chloride 0.45%) 1,000 mls @ 100 mls/hr IV ASDIRECTED [facility] Last Admin: 03/09/21 21:48 Dose: 100 mls/hr Documented by: Insulin Human Regular (Insulin Regular, Human 100 Units/Ml 3 Ml Vial) 5 unit IV ONETIME ONE Stop: 03/09/21 17:50 Last Admin: 03/09/21 18:26 Dose: 5 units Documented by: Ketorolac Tromethamine (Ketorolac 30 Mg/Ml Sdv) 30 mg IVPUSH ONETIME ONE Stop: 03/09/21 19:38 Last Admin: 03/09/21 19:42 Dose: 30 mg Documented by: Potassium Chloride (Potassium Chloride 10 Meq Tab.Er) 40 meq PO Q2H HESHAM Stop: 03/09/21 22:16 Last Admin: 03/09/21 23:15 Dose: 40 meq Documented by: - Exam General: Reports: Alert, Oriented HEENT: Reports: Pupils Equal, Pupils Reactive, EOMI, Mucous Membr. Moist/Pauline Neck: Reports: Supple Lungs: Reports: Clear to Auscultation, Normal Respiratory Effort Cardiovascular: Reports: Regular Rate, Regular Rhythm GI/Abdominal Exam: Normal Bowel Sounds, Soft, Non-Tender, No Organomegaly, No Distention, No Abnormal Bruit, No Mass, Pelvis Stable (Female) Exam: No: Normal External Exam, Normal Speculum Exam, Normal Bimanual Exam Back Exam: Reports: Normal Inspection, Full Range of Motion Extremities: Normal Inspection, Normal Range of Motion, Non-Tender, No Pedal Edema, Normal Capillary Refill Skin: Reports: Warm Wound/Incisions: Reports: Healing Well Neurological: Reports: No New Focal Deficit Psy/Mental Status: Reports: Alert, Normal Affect, Normal Mood
[2021-03-10] MEDS ORDERED: Ferrous Sulfate 325 MG Tab PO SCH (08:00)
[2021-03-10] MEDS ORDERED: VALACYCLOVIR 1000 MG PO SCH (09:00)
[2021-03-10] MEDS ORDERED: Lisinopril 5 MG Tab PO SCH (09:00)
[2021-03-10] MEDS ORDERED: Ascorbic Acid 500 MG Tab PO SCH (09:00)
[2021-03-10] MEDS: Insulin Glarg,Human.Rec.Analog 100 Unit/ML SUBCUT SCH (09:27)
== END 2021-03-10 10:10 | disposition home or self-care (01) ==
LOC: DL.ED 15:40 → DL.MS 18:03
PROVIDERS: ADMIT Internal Medicine; ATTEND Internal Medicine
DX: E10.65 Type 1 diabetes mellitus with hyperglycemia (principal); F32.9 Major depressive disorder, single episode, unspecified; E87.6 Hypokalemia; E83.42 Hypomagnesemia; D50.9 Iron deficiency anemia, unspecified; E66.9 Obesity, unspecified; D47.3 Essential (hemorrhagic) thrombocythemia; F17.200 Nicotine dependence, unspecified, uncomplicated; Z79.899 Other long term (current) drug therapy; Z90.49 Acquired absence of other specified parts of digestive tract; Z20.822 Contact with and (suspected) exposure to COVID-19
CPT/HCPCS: 36415; 36600; 80048; 80053; 80143; 80179; 80305-QW; 80307; 81001; 81025; 82009; 82550; 82668; 82728; 82803; 82947; 83036; 83540; 83550; 83605; 83615; 83735; 85025; 85045; 85610; 96365; 96366; 96368; 96375; 99285; A9270-GY; G0378; J1815-GY; J1885; J3475; J3480; J7030; U0002

== ENCOUNTER 2021-07-31 23:53 | Emergency (ER) | payer MEDICAID, OTHER ==
[2021-08-01] MEDS ORDERED: Sodium Chloride 0.9% 1,000 ML IV ONE (00:15)
[2021-08-01 00:34] LABS: ANION GAP 22.7 mEq/L (7-13); CHLORIDE,CL 104 mmol/L (98-107); SODIUM,NA 140 mmol/L (136-145)
[2021-08-01 01:11] LABS: CORONAVIRUS COVID-19 NAA NEGATIVE (NEGATIVE)
--- NOTE | 2021-08-01 01:26 | EDM.PDOC ---
ED HPI GENERAL MEDICAL PROBLEM - General Chief Complaint: Abdominal Pain Stated Complaint: SPLK - AMBULANCE Time Seen by Provider: 08/01/21 01:10 Source of Information: Reports: Patient History Limitations: Reports: No Limitations - History of Present Illness INITIAL COMMENTS - FREE TEXT/NARRATIVE: This 35 yo female patient was brought to the ED by [facility] due to increased right l ower quadrant pain that radiates up to her right flank. The patient reports her symptoms started yesterday afternoon and have been getting worse. The patient reports she took 3 Tylenol (325 mg) about 2 hours ago with some symptom relief. The patient reports no history of similar symptoms in the past. The patient admits to the possibility of at this time. The patient denies any alcohol or drug use. Onset Date: 07/31/21 Duration: Intermittent Location: Reports: Abdomen (RLQ) Quality: Reports: Ache, Dull Severity: Moderate Improves with: Reports: None Worsens with: Reports: None Context: Reports: Other Associated Symptoms: Reports: Other Treatments [employer]: Reports: Acetaminophen Lower Abdomen Pain Score (Numeric/FACES): 3 - Related Data Allergies Allergy/AdvReac Type Severity Reaction Status Date / Time No Known Allergies Allergy Verified 07/31/21 23:55 Home Meds: Home Meds Ascorbic Acid [Vitamin C] 500 mg PO DAILY 30 Days #30 tablet 03/10/21 [Rx] Ferrous Sulfate 325 mg PO BIDMEALS 30 Days #60 tablet 03/10/21 [Rx] Insulin Glargine,Hum.Rec.Anlog [Lantus Solostar] 16 unit SQ BID 30 Days #1 insuln.pen 03/10/21 [Rx] Insulin Lispro [Humalog Kwikpen U-100] See Protocol SQ WITHMEALSANDBED 30 Days #1 insuln.pen 03/10/21 [Rx] lisinopriL [Prinivil] 5 mg PO DAILY 30 Days #30 tablet 03/10/21 [Rx] valACYclovir [Valtrex] 1 gram PO BID 03/10/21 [Rx] Acetaminophen [Tylenol] 325 mg PO QID 08/01/21 [History] Past Medical History - Past Health History Medical/Surgical History: Denies Medical/Surgical History 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 Endocrine/Metabolic History: Reports: Diabetes, Type I - Infectious Disease History Infectious Disease History: Reports: MRSA - Past Surgical History GI Surgical History: Reports: Appendectomy, Cholecystectomy Female Surgical History: Reports: Section Other Female Surgeries/Procedures: [id number] Social & Family History - Family History Family Medical History: No Pertinent Family History - Tobacco Use Tobacco Use Status *Q: Current Every Day Tobacco User Years of Tobacco use: 12 Packs/Tins Daily: 0.2 - Caffeine Use Caffeine Use: Reports: Energy Drinks - Recreational Drug Use Recreational Drug Use: No ED ROS GENERAL - Review of Systems Review Of Systems: Comprehensive ROS is negative, except as noted in HPI. ED EXAM, GI/ABD - Physical Exam Exam: See Below Exam Limited By: No Limitations General Appearance: Alert, WD/WN, Mild Distress Eyes: Bilateral: Normal Appearance, EOMI Ears: Normal External Exam, Normal Canal, Hearing Grossly Normal, Normal TMs Nose: Normal Inspection, Normal Mucosa, No Blood Throat/Mouth: Normal Inspection, Normal Lips, Normal Teeth, Normal Gums, Normal Oropharynx, Normal Voice, No Airway Compromise Head: Atraumatic, Normocephalic Neck: Normal Inspection, Supple, Non-Tender, Full Range of Motion Respiratory/Chest: No Respiratory Distress, Lungs Clear, Normal Breath Sounds, No Accessory Muscle Use, Chest Non-Tender Cardiovascular: Normal Peripheral Pulses, Regular Rate, Rhythm, No Edema, No Gallop, No JVD, No Murmur, No Rub GI/Abdominal Exam: Normal Bowel Sounds, Soft, Tender (mild tenderness to palpation of right lower quarant. ) (Female) Exam: Deferred Rectal (Female) Exam: Deferred Back Exam: CVA Tenderness (R) Extremities: Normal Inspection Neurological: Alert, Oriented, CN II-XII Intact, Normal Cognition, Normal Gait, Normal Reflexes, No Motor/Sensory Deficits Psychiatric: Normal Affect, Normal Mood Skin Exam: Warm, Dry, Intact, Normal Color, No Rash Lymphatic: No Adenopathy Course - Vital Signs Last Recorded V/S: Last Vital Signs Temp 99.2 F 08/01/21 03:22 Pulse 106 H 08/01/21 03:00 Resp 18 08/01/21 03:22 BP 123/76 08/01/21 03:00 Pulse Ox 94 L 08/01/21 03:00 - Orders/Labs/Meds Orders: Active Orders 24 hr Category Date Time Status Abdomen Pelvis w Cont [CT] Urgent Exams 08/01/21 01:44 Taken LACTIC ACID [CHEM] Routine Lab 08/01/21 02:42 Ordered Labs: Laboratory Tests 07/31/21 07/31/21 07/31/21 Range/Units 00:05 00:05 00:05 WBC 16.0 H (5.0-10.0) 10^3/uL RBC 5.33 (4.2-5.4) 10^6/uL Hgb 10.0 L D (12.0-16.0) g/dL Hct 33.2 L (37.0-47.0) % MCV 62.3 L (80-100) fL MCH 18.8 L (27.0-34.0) pg MCHC 30.1 L (33.0-35.0) g/dL Plt Count 556 H (150-450) 10^3/uL Neut % (Auto) 63.8 (42.2-75.2) % Lymph % (Auto) 28.1 (20.5-50.1) % [place] % (Auto) 5.1 (2-8) % Eos % (Auto) 1.4 (1.0-3.0) % Baso % (Auto) 1.6 H (0.0-1.0) % Sodium 140 (136-145) mmol/L Potassium 3.7 (3.5-5.1) mmol/L Chloride 104 (98-107) mmol/L Carbon Dioxide 17 L (21-32) mmol/L Anion Gap 22.7 H (7-13) mEq/L BUN 4 L (7-18) mg/dL Creatinine 0.76 (0.55-1.02) mg/dL Est Cr Clr Drug Dosing 107.97 mL/min Estimated GFR (MDRD) > 60 BUN/Creatinine Ratio 5.3 (No establ ref range) Glucose 306 H (70-99) mg/dL Lactic Acid 3.9 H* (0.4-2.0) mmol/L Calcium 8.3 L (8.5-10.1) mg/dL Total Bilirubin 0.4 (0.2-1.0) mg/dL AST 28 (15-37) U/L ALT 49 (14-59) U/L Alkaline Phosphatase 108 (46-116) U/L Total Protein 8.4 H (6.4-8.2) g/dL Albumin 3.8 (3.4-5.0) g/dL Globulin 4.6 Albumin/Globulin Ratio 0.8 Amylase 34 (25-115) U/L Lipase 132 (73-393) U/L Urine Color (YELLOW) Urine Appearance (CLEAR) Urine pH (5.0-9.0) Ur Specific [place] (1.005-1.030) Urine Protein (NEGATIVE) Urine Glucose (UA) (NEGATIVE) Urine Ketones (NEGATIVE) Urine Occult Blood (NEGATIVE) Urine Nitrite (NEGATIVE) Urine Bilirubin (NEGATIVE) Urine Urobilinogen (0.2-1.0) mg/dL Ur Leukocyte Esterase (NEGATIVE) Urine RBC (0-5) /HPF Urine WBC (0-5/HPF) /HPF Ur Epithelial Cells (NOT SEEN) /HPF Urine Bacteria (0-FEW/HPF) /HPF Urine Yeast (NOT SEEN) /HPF Urine HCG, Qual Urine Opiates Screen (NEGATIVE) Ur Oxycodone Screen (NEGATIVE) Urine Methadone Screen (NEGATIVE) Ur Barbiturates Screen (NEGATIVE) U Tricyclic Antidepress (NEGATIVE) Ur Phencyclidine Scrn (NEGATIVE) Ur Amphetamine Screen (NEGATIVE) U Methamphetamines Scrn (NEGATIVE) Urine MDMA Screen (NEGATIVE) U Benzodiazepines Scrn (NEGATIVE) Urine Cocaine Screen (NEGATIVE) U Marijuana (THC) Screen (NEGATIVE) Ketones Negative Influenza Type A RNA (NEGATIVE) Influenza Type B RNA (NEGATIVE) SARS-CoV-2 RNA (LIBBY) (NEGATIVE) 08/01/21 08/01/21 08/01/21 Range/Units 00:15 01:00 01:00 WBC (5.0-10.0) 10^3/uL RBC (4.2-5.4) 10^6/uL Hgb (12.0-16.0) g/dL Hct (37.0-47.0) % MCV (80-100) fL MCH (27.0-34.0) pg MCHC (33.0-35.0) g/dL Plt Count (150-450) 10^3/uL Neut % (Auto) (42.2-75.2) % Lymph % (Auto) (20.5-50.1) % [place] % (Auto) (2-8) % Eos % (Auto) (1.0-3.0) % Baso % (Auto) (0.0-1.0) % Sodium (136-145) mmol/L Potassium (3.5-5.1) mmol/L Chloride (98-107) mmol/L Carbon Dioxide (21-32) mmol/L Anion Gap (7-13) mEq/L BUN (7-18) mg/dL Creatinine (0.55-1.02) mg/dL Est Cr Clr Drug Dosing mL/min Estimated GFR (MDRD) BUN/Creatinine Ratio (No establ ref range) Glucose (70-99) mg/dL Lactic Acid (0.4-2.0) mmol/L Calcium (8.5-10.1) mg/dL Total Bilirubin (0.2-1.0) mg/dL AST (15-37) U/L ALT (14-59) U/L Alkaline Phosphatase (46-116) U/L Total Protein (6.4-8.2) g/dL Albumin (3.4-5.0) g/dL Globulin Albumin/Globulin Ratio Amylase (25-115) U/L Lipase (73-393) U/L Urine Color Yellow (YELLOW) Urine Appearance Slightly cloudy (CLEAR) Urine pH 5.0 (5.0-9.0) Ur Specific [place] 1.025 (1.005-1.030) Urine Protein 100 H (NEGATIVE) Urine Glucose (UA) >=1000 H (NEGATIVE) Urine Ketones 40 H (NEGATIVE) Urine Occult Blood Trace-intact H (NEGATIVE) Urine Nitrite Negative (NEGATIVE) Urine Bilirubin Negative (NEGATIVE) Urine Urobilinogen 0.2 (0.2-1.0) mg/dL Ur Leukocyte Esterase Negative (NEGATIVE) Urine RBC 0-5 (0-5) /HPF Urine WBC 10-20 H (0-5/HPF) /HPF Ur Epithelial Cells Few (NOT SEEN) /HPF Urine Bacteria Few (0-FEW/HPF) /HPF Urine Yeast Few H (NOT SEEN) /HPF Urine HCG, Qual Negative Urine Opiates Screen (NEGATIVE) Ur Oxycodone Screen (NEGATIVE) Urine Methadone Screen (NEGATIVE) Ur Barbiturates Screen (NEGATIVE) U Tricyclic Antidepress (NEGATIVE) Ur Phencyclidine Scrn (NEGATIVE) Ur Amphetamine Screen (NEGATIVE) U Methamphetamines Scrn (NEGATIVE) Urine MDMA Screen (NEGATIVE) U Benzodiazepines Scrn (NEGATIVE) Urine Cocaine Screen (NEGATIVE) U Marijuana (THC) Screen (NEGATIVE) Ketones Influenza Type A RNA Negative (NEGATIVE) Influenza Type B RNA Negative (NEGATIVE) SARS-CoV-2 RNA (LIBBY) Negative (NEGATIVE) 08/01/21 Range/Units 01:00 WBC (5.0-10.0) 10^3/uL RBC (4.2-5.4) 10^6/uL Hgb (12.0-16.0) g/dL Hct (37.0-47.0) % MCV (80-100) fL MCH (27.0-34.0) pg MCHC (33.0-35.0) g/dL Plt Count (150-450) 10^3/uL Neut % (Auto) (42.2-75.2) % Lymph % (Auto) (20.5-50.1) % [place] % (Auto) (2-8) % Eos % (Auto) (1.0-3.0) % Baso % (Auto) (0.0-1.0) % Sodium (136-145) mmol/L Potassium (3.5-5.1) mmol/L Chloride (98-107) mmol/L Carbon Dioxide (21-32) mmol/L Anion Gap (7-13) mEq/L BUN (7-18) mg/dL Creatinine (0.55-1.02) mg/dL Est Cr Clr Drug Dosing mL/min Estimated GFR (MDRD) BUN/Creatinine Ratio (No establ ref range) Glucose (70-99) mg/dL Lactic Acid (0.4-2.0) mmol/L Calcium (8.5-10.1) mg/dL Total Bilirubin (0.2-1.0) mg/dL AST (15-37) U/L ALT (14-59) U/L Alkaline Phosphatase (46-116) U/L Total Protein (6.4-8.2) g/dL Albumin (3.4-5.0) g/dL Globulin Albumin/Globulin Ratio Amylase (25-115) U/L Lipase (73-393) U/L Urine Color (YELLOW) Urine Appearance (CLEAR) Urine pH (5.0-9.0) Ur Specific [place] (1.005-1.030) Urine Protein (NEGATIVE) Urine Glucose (UA) (NEGATIVE) Urine Ketones (NEGATIVE) Urine Occult Blood (NEGATIVE) Urine Nitrite (NEGATIVE) Urine Bilirubin (NEGATIVE) Urine Urobilinogen (0.2-1.0) mg/dL Ur Leukocyte Esterase (NEGATIVE) Urine RBC (0-5) /HPF Urine WBC (0-5/HPF) /HPF Ur Epithelial Cells (NOT SEEN) /HPF Urine Bacteria (0-FEW/HPF) /HPF Urine Yeast (NOT SEEN) /HPF Urine HCG, Qual Urine Opiates Screen Negative (NEGATIVE) Ur Oxycodone Screen Negative (NEGATIVE) Urine Methadone Screen Negative (NEGATIVE) Ur Barbiturates Screen Negative (NEGATIVE) U Tricyclic Antidepress Negative (NEGATIVE) Ur Phencyclidine Scrn Negative (NEGATIVE) Ur Amphetamine Screen Negative (NEGATIVE) U Methamphetamines Scrn Negative (NEGATIVE) Urine MDMA Screen Negative (NEGATIVE) U Benzodiazepines Scrn Negative (NEGATIVE) Urine Cocaine Screen Negative (NEGATIVE) U Marijuana (THC) Screen Negative (NEGATIVE) Ketones Influenza Type A RNA (NEGATIVE) Influenza Type B RNA (NEGATIVE) SARS-CoV-2 RNA (LIBBY) (NEGATIVE) Meds: Medications Discontinued Medications Generic Name Dose Route Start Last Admin Trade Name Freq PRN Reason Stop Dose Admin Sodium Chloride 1,000 mls @ 999 mls/hr 08/01/21 00:15 08/01/21 00:20 Normal Saline IV 08/01/21 01:15 999 mls/hr .BOLUS ONE Administration Iopamidol 100 ml 08/01/21 01:44 08/01/21 01:54 Iopamidol 612 Mg/Ml 100 Ml Bottle IVPUSH 08/01/21 01:45 100 ml ONETIME ONE Administration - Radiology Interpretation Free Text/Narrative:: [facility] Final Radiology Report Call: [phone] assistance Online chat: [email or web address] Name: JAMES CELESTE Age: 35Years F Date: 08/01/2021 SSN: -- : [id number] Study: CT ABDOMEN PELVIS W CONT Requesting Physician: Charbel Lord Images: [id number] Addl Studies: Provided Clinical History: Right lower abdominal pain Contrast: With Contrast Medium: [id number] Contrast Amount: 100 mL Contrast Method: Intravenous (IV) Page 1 of 2 PROCEDURE INFORMATION: Exam: CT Abdomen And Pelvis With Contrast Exam date and time: 08/01/2021 2:10 AM Age: 35 years old Clinical indication: Other: Wbc 16,000--hematuria; Additional info: Right lower abdominal pain TECHNIQUE: Imaging protocol: Computed tomography of the abdomen and pelvis with contrast. Radiation optimization: All CT scans at this facility use at least one of these dose optimization techniques: automated exposure control; mA and/or kV adjustment per patient size (includes targeted exams where dose is matched to clinical indication); or iterative reconstruction. Contrast material: [id number]; Contrast volume: 100 ml; Contrast route: INTRAVENOUS (IV); COMPARISON: CT ABDOMEN/PELVIS 04/03/2013 10:36 PM FINDINGS: Lungs: The lung bases are clear. No effusion Liver: There is fatty infiltration of the liver. Gallbladder and bile ducts: There has been a cholecystectomy. Pancreas: Normal. No ductal dilation. Spleen: Normal. No splenomegaly. Adrenal glands: Normal. No mass. Kidneys and ureters: There are multiple right renal cysts, largest measures 1.7 cm.. Stomach and bowel: Unremarkable. No obstruction. No mucosal thickening. Appendix: Appendix has been removed. Intraperitoneal space: Small amount of free fluid in the pelvis. Vasculature: Unremarkable. No abdominal aortic aneurysm. Lymph nodes: Unremarkable. No enlarged lymph nodes. Urinary bladder: Unremarkable as visualized. Reproductive: Unremarkable as visualized. Bones/joints: Unremarkable. No acute fracture. Soft tissues: Unremarkable. IMPRESSION: 1. Fatty infiltration of the liver. 2. No cause for acute pain is identified. COMMENTS: Consistent with the [employer]'s Incidental Findings Committee white paper (J Am Yasmine Radiol 2018): Any incidental renal lesion less than 1 cm or classified as too small to characterize, or any incidental cystic renal lesion characterized as simple- appearing, is likely benign. No follow-up imaging is recommended for these lesions per consensus recomme ndations based on imaging criteria. Thank you for allowing us to participate in the care of your patient. Dictated and Authenticated by: Kaden Dean DO 08/01/2021 3:30 AM Central Time ([place] & [place]) Departure - Departure Time of Disposition: 03:33 Disposition: Against Medical Advice 07 Condition: Fair Clinical Impression: Constipation Qualifiers: Constipation type: unspecified constipation type Qualified Code(s): K59.00 - Constipation, unspecified - Discharge Information *PRESCRIPTION DRUG MONITORING PROGRAM REVIEWED*: Not Applicable *COPY OF PRESCRIPTION DRUG MONITORING REPORT IN PATIENT [place]: Not Applicable Instructions: Constipation, Adult, [id number] Forms: ED Department Discharge Care Plan Goals: The patient was advised of the examination, lab and CT results during the visit. The patient was encouraged to increase her physical activity. The patient should drink plenty of fluids. The patient was encouraged to follow-up with her primary care facility tomorrow to get her medications refilled. If the patient has any additional symptoms or concerns, the patient should either return to the emergency department or visit her primary care facility. Sepsis Event Note (ED) - Focused Exam Vital Signs: Vital Signs Temp Pulse Resp BP Pulse Ox 08/01/21 03:22 99.2 F 18 08/01/21 03:00 106 H 123/76 94 L 08/01/21 02:19 98.6 F 88 18 113/79 95 08/01/21 01:09 98.2 F 98 16 124/77 97 08/01/21 00:30 98 18 121/70 94 L 08/01/21 00:05 97.5 F 106 H 20 128/85 96 - My Orders Last 24 Hours: My Active Orders 08/01/21 01:44 Abdomen Pelvis w Cont [CT] Urgent 08/01/21 02:42 LACTIC ACID [CHEM] Routine - Assessment/Plan Last 24 Hours: My Active Orders 08/01/21 01:44 Abdomen Pelvis w Cont [CT] Urgent 08/01/21 02:42 LACTIC ACID [CHEM] Routine
[2021-08-01 01:44] LABS: AMPHETAMINES,URINE NEGATIVE (NEGATIVE); BARBITURATES,URINE NEGATIVE (NEGATIVE); BENZODIAZEPINE,URINE NEGATIVE (NEGATIVE); MDMA (ECSTASY), URINE NEGATIVE (NEGATIVE); METHADONE,URINE NEGATIVE (NEGATIVE); METHAMPHETAMINES,URINE NEGATIVE (NEGATIVE); OPIATES,URINE NEGATIVE (NEGATIVE); PHENCYCLIDINE,URINE NEGATIVE (NEGATIVE); TCA,URINE NEGATIVE (NEGATIVE)
[2021-08-01] MEDS ORDERED: Iopamidol 612 MG/ML 100 ML Bottle IVPUSH ONE (01:44)
[2021-08-01 01:45] LABS: OXYCODONE,URINE NEGATIVE (NEGATIVE)
--- NOTE | 2021-08-01 03:30 | CT ---
PROCEDURE INFORMATION: Exam: CT Abdomen And Pelvis With Contrast Exam date and time: 08/01/2021 2:10 AM Age: 35 years old Clinical indication: Other: Wbc 16,000--hematuria; Additional info: Right lower abdominal pain TECHNIQUE: Imaging protocol: Computed tomography of the abdomen and pelvis with contrast. Radiation optimization: All CT scans at this facility use at least one of these dose optimization techniques: automated exposure control; mA and/or kV adjustment per patient size (includes targeted exams where dose is matched to clinical indication); or iterative reconstruction. Contrast material: [id number]; Contrast volume: 100 ml; Contrast route: INTRAVENOUS (IV); COMPARISON: CT ABDOMEN/PELVIS 04/03/2013 10:36 PM FINDINGS: Lungs: The lung bases are clear. No effusion Liver: There is fatty infiltration of the liver. Gallbladder and bile ducts: There has been a cholecystectomy. Pancreas: Normal. No ductal dilation. Spleen: Normal. No splenomegaly. Adrenal glands: Normal. No mass. Kidneys and ureters: There are multiple right renal cysts, largest measures 1.7 cm.. Stomach and bowel: Unremarkable. No obstruction. No mucosal thickening. Appendix: Appendix has been removed. Intraperitoneal space: Small amount of free fluid in the pelvis. Vasculature: Unremarkable. No abdominal aortic aneurysm. Lymph nodes: Unremarkable. No enlarged lymph nodes. Urinary bladder: Unremarkable as visualized. Reproductive: Unremarkable as visualized. Bones/joints: Unremarkable. No acute fracture. Soft tissues: Unremarkable. IMPRESSION: 1. Fatty infiltration of the liver. 2. No cause for acute pain is identified. COMMENTS: Consistent with the [employer]'s Incidental Findings Committee white paper (J Am Yasmine Radiol 2018): Any incidental renal lesion less than 1 cm or classified as too small to characterize, or any incidental cystic renal lesion characterized as simple-appearing, is likely benign. No follow-up imaging is recommended for these lesions per consensus recommendations based on imaging criteria.
== END 2021-08-01 03:30 | disposition home or self-care (01) ==
LOC: DL.ED 23:53
DX: K59.00 Constipation, unspecified (principal); E10.9 Type 1 diabetes mellitus without complications; Z72.0 Tobacco use; Z79.899 Other long term (current) drug therapy; Z20.822 Contact with and (suspected) exposure to COVID-19
CPT/HCPCS: 0240U; 36415; 74177; 80053; 80305; 81001; 81025; 82009; 82150; 83605; 83690; 85025; 87040; 99284; J7030; Q9967

== ENCOUNTER 2021-08-04 11:15 | Emergency (ER) | payer MEDICAID ==
[2021-08-04] MEDS ORDERED: Lidocaine 1% 30 ML SDV INJECT ONE (11:43)
--- NOTE | 2021-08-04 12:12 | EDM.PDOC ---
ED HPI GENERAL MEDICAL PROBLEM - General Stated Complaint: AMBULANCE Time Seen by Provider: 08/04/21 11:50 Source of Information: Reports: Patient History Limitations: Reports: No Limitations - History of Present Illness INITIAL COMMENTS - FREE TEXT/NARRATIVE: This 35 yo female patient reports to the ED with a boil to her left inner thigh. The patient reports she has noticed the area getting more swollen and red over the past 5 days. The patient did not have a ride into the Clinic, so she has not been able to get an appointment. 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 Duration: Day(s):, Constant, Getting Worse Location: Reports: Lower Extremity, Left Quality: Reports: Ache, Sharp, Throbbing Severity: Moderate Worsens with: Reports: None Context: Reports: Other Associated Symptoms: Reports: No Other Symptoms Treatments BASKET PERSON: Reports: Acetaminophen, Other Medication(s) (Morphine by EMS) - Related Data Allergies Allergy/AdvReac Type Severity Reaction Status Date / Time No Known Allergies Allergy Verified 08/04/21 12:50 Home Meds: Home Meds Ascorbic Acid [Vitamin C] 500 mg PO DAILY 30 Days #30 tablet 03/10/21 [Rx] Ferrous Sulfate 325 mg PO BIDMEALS 30 Days #60 tablet 03/10/21 [Rx] Insulin Glargine,Hum.Rec.Anlog [Lantus Solostar] 16 unit SQ BID 30 Days #1 insuln.pen 03/10/21 [Rx] Insulin Lispro [Humalog Kwikpen U-100] See Protocol SQ WITHMEALSANDBED 30 Days #1 insuln.pen 03/10/21 [Rx] lisinopriL [Prinivil] 5 mg PO DAILY 30 Days #30 tablet 03/10/21 [Rx] valACYclovir [Valtrex] 1 gram PO BID 03/10/21 [Rx] Acetaminophen [Tylenol] 325 mg PO QID 08/01/21 [History] Past Medical History - Past Health History Medical/Surgical History: Denies Medical/Surgical History PRIMARY CARE NURSE History: Reports: Musculoskeletal History: Reports: Other (See Below) Other Musculoskeletal History: Right ankle fracture. Endocrine/Metabolic History: Reports: Diabetes, Type I - Infectious Disease History Infectious Disease History: Reports: MRSA - Past Surgical History GI Surgical History: Reports: Appendectomy, Cholecystectomy Female Surgical History: Reports: Section Other Female Surgeries/Procedures: c/[id number] Social & Family History - Family History Family Medical History: No Pertinent Family History - Caffeine Use Caffeine Use: Reports: None ED ROS GENERAL - Review of Systems Review Of Systems: Comprehensive ROS is negative, except as noted in HPI. ED EXAM, SKIN/RASH Exam: See Below Exam Limited By: No Limitations General Appearance: Alert, WD/WN, Moderate Distress Eye Exam: Bilateral Eye: EOMI, Normal Inspection, PERRL Ears: Normal External Exam, Normal Canal, Hearing Grossly Normal, Normal TMs Nose: Normal Inspection, Normal Mucosa, No Blood Throat/Mouth: Normal Inspection, Normal Lips, Normal Teeth, Normal Gums, Normal Oropharynx, Normal Voice, No Airway Compromise Head: Atraumatic, Normocephalic Neck: Normal Inspection, Supple, Non-Tender, Full Range of Motion Respiratory/Chest: No Respiratory Distress, Lungs Clear, Normal Breath Sounds, No Accessory Muscle Use, Chest Non-Tender Cardiovascular: Normal Peripheral Pulses, Regular Rate, Rhythm, No Edema, No Gallop, No JVD, No Murmur, No Rub GI/Abdominal: Normal Bowel Sounds, Soft, Non-Tender, No Organomegaly, No Distention, No Abnormal Bruit, No Mass (Female) Exam: Deferred Rectal (Female) Exam: Deferred Back Exam: Normal Inspection, Full Range of Motion, NT Extremities: Leg Pain (left upper medial thigh) Neurological: Alert, Oriented, CN II-XII Intact, Normal Cognition, Normal Gait, Normal Reflexes, No Motor/Sensory Deficits Psychiatric: Normal Affect, Normal Mood Skin: Erythema Location, Skin: Lower Extremity, Left Characteristics: Erythematous Associated features: Warmth, Tenderness, Swelling, Induration, Inflammation Lymphatic: No Adenopathy ED SKIN PROCEDURES - I&D Site: left upper inner thigh Skin Prep: Providone-Iodine (Betadine), Isopropyl Alcohol (Alcohol) Local Anesthesia: Lidocaine: 1% Plain Local Anesthetic Volume: 5cc Area Incised With: 11 Blade Drainage: Bloody, Moderate Amount Probed to Break Up Loculations: Yes Packed With: None Sterile Dressing: Adhesive Dressing, 4x4(s) Complications: No Course - Vital Signs Last Recorded V/S: Last Vital Signs Temp 98.7 F 08/04/21 12:46 Pulse 87 08/04/21 12:46 Resp 18 08/04/21 12:46 BP 132/72 08/04/21 12:46 Pulse Ox 99 08/04/21 12:46 - Orders/Labs/Meds Meds: Medications Discontinued Medications Generic Name Dose Route Start Last Admin Trade Name Leah PRN Reason Stop Dose Admin Vancomycin HCl 1,500 mg/ 500 mls @ 333.333 mls/hr 08/04/21 12:05 08/04/21 12:29 Sodium Chloride IV 08/04/21 13:34 333.333 mls/hr ONETIME ONE Administration Lidocaine HCl 30 ml 08/04/21 11:43 08/04/21 12:00 Lidocaine 1% 30 Ml Sdv INJECT 08/04/21 11:44 30 ml ONETIME ONE Administration Departure - Departure Time of Disposition: 13:37 Disposition: Home, Self-Care 01 Condition: Fair Clinical Impression: Abscess of left thigh - Discharge Information *PRESCRIPTION DRUG MONITORING PROGRAM REVIEWED*: Not Applicable *COPY OF PRESCRIPTION DRUG MONITORING REPORT IN PATIENT [place]: Not Applicable Instructions: Skin Abscess, [id number] Care Plan Goals: The patient was advised of the examination results during the visit. The abscess was incised and drained during the visit. The patient was given an IV dose of Vancomycin (due to history of MRSA) while in the ED. The patient was discharged with scripts for 1) Bactrim DS #20 to take 1 by mouth 2 times per day for 10 days and 2) Keflex (500 mg) #30 to take 1 by mouth 3 times per day for 10 days. If the patient has any additional symptoms or concerns, the patient should either return to the emergency department or visit her primary care facility. Sepsis Event Note (ED) - Focused Exam Vital Signs: Vital Signs Temp Pulse Resp BP Pulse Ox 08/04/21 12:46 98.7 F 87 18 132/72 99
== END 2021-08-04 14:20 | disposition home or self-care (01) ==
LOC: DL.ED 11:15
DX: L02.416 Cutaneous abscess of left lower limb (principal); E10.9 Type 1 diabetes mellitus without complications
CPT/HCPCS: 10060; 96365; 96366; 99283-25; J3370; J7040

== ENCOUNTER 2022-04-12 04:40 | Emergency (ER) | payer MEDICAID ==
[2022-04-12 05:36] LABS: ANION GAP 18.4 mEq/L (7-13); CHLORIDE,CL 106 mmol/L (98-107); SODIUM,NA 145 mmol/L (136-145)
[2022-04-12 05:38] LABS: ACETAMINOPHEN 0 ug/mL (10-30 (Therapeutic)); ESTIMATED GFR 109 mL/min (>=60)
[2022-04-12] MEDS ORDERED: MVI, Adult with Vitamin K 10 ML, Folic Acid 1 MG, Thiamine 100 MG in Lactated Ringers 1... IV ONE ×4 (05:48)
[2022-04-12] MEDS ORDERED: Sodium Chloride 0.9% 1,000 ML IV ONE (07:50)
[2022-04-12 08:32] LABS: AMPHETAMINES,URINE NEGATIVE (NEGATIVE); BARBITURATES,URINE NEGATIVE (NEGATIVE); BENZODIAZEPINE,URINE NEGATIVE (NEGATIVE); MDMA (ECSTASY), URINE NEGATIVE (NEGATIVE); METHADONE,URINE NEGATIVE (NEGATIVE); METHAMPHETAMINES,URINE NEGATIVE (NEGATIVE); OPIATES,URINE NEGATIVE (NEGATIVE); OXYCODONE,URINE NEGATIVE (NEGATIVE); PHENCYCLIDINE,URINE NEGATIVE (NEGATIVE); TCA,URINE NEGATIVE (NEGATIVE)
== END 2022-04-12 10:38 | disposition home or self-care (01) ==
LOC: DL.ED 04:40
DX: T45.0X2A Poisoning by antiallergic and antiemetic drugs, intentional self-harm, initial encounter (principal); F10.10 Alcohol abuse, uncomplicated; E10.9 Type 1 diabetes mellitus without complications
CPT/HCPCS: 36415; 80053; 80143; 80179; 80305; 80307; 81001; 82009; 82947; 83605; 84703; 85025; 93005; 96361; 96365; 99284; J3411; J7030; J7120; J3490

== ENCOUNTER 2022-07-24 06:55 | Emergency (ER) | payer MEDICAID ==
[2022-07-24] MEDS ORDERED: Cephalexin 500 MG Cap PO ONE (06:56)
[2022-07-24] MEDS ORDERED: Promethazine 25 MG Tab PO ONE (06:56)
[2022-07-24] MEDS ORDERED: Famotidine 20 MG/2 ML SDV IVPUSH ONE (06:57)
[2022-07-24] MEDS ORDERED: Ketorolac 30 MG/ML SDV IVPUSH ONE (06:57)
[2022-07-24] MEDS ORDERED: Sodium Chloride 0.9% 10 ML Syringe FLUSH PRN (06:57)
[2022-07-24] MEDS ORDERED: Sodium Chloride 0.9% 1,000 ML IV ONE (06:57)
[2022-07-24] MEDS ORDERED: Ondansetron 4 MG/2 ML SDV IV ONE (07:04)
[2022-07-24 07:40] LABS: CORONAVIRUS COVID-19 NAA NEGATIVE (NEGATIVE); RESPIRATORY SYNCYTIAL VIR NAA NEGATIVE (NEGATIVE)
[2022-07-24 07:42] LABS: ANION GAP 13.8 mEq/L (7-13); CHLORIDE,CL 103 mmol/L (98-107); SODIUM,NA 139 mmol/L (136-145)
[2022-07-24 07:42] LABS: AMPHETAMINES,URINE NEGATIVE (NEGATIVE); BARBITURATES,URINE NEGATIVE (NEGATIVE); BENZODIAZEPINE,URINE NEGATIVE (NEGATIVE); MDMA (ECSTASY), URINE NEGATIVE (NEGATIVE); METHADONE,URINE NEGATIVE (NEGATIVE); METHAMPHETAMINES,URINE NEGATIVE (NEGATIVE); OPIATES,URINE NEGATIVE (NEGATIVE); OXYCODONE,URINE NEGATIVE (NEGATIVE); PHENCYCLIDINE,URINE NEGATIVE (NEGATIVE); TCA,URINE NEGATIVE (NEGATIVE)
[2022-07-24 07:44] LABS: ESTIMATED GFR 98 mL/min (>=60)
[2022-07-24] MEDS ORDERED: Iopamidol 612 MG/ML 100 ML Bottle IVPUSH ONE (07:47)
[2022-07-24] MEDS ORDERED: cefTRIAXone 2 GM in Sodium Chloride 0.9% 100 ML IV ONE (07:48)
[2022-07-24] MEDS ORDERED: NS with KCl 40mEq 1,000 ML IV SCH (08:00)
[2022-07-24] MEDS ORDERED: cefTRIAXone 1 GM Vial ONE (08:17)
[2022-07-24] MEDS ORDERED: Promethazine 25 MG Tab ONE (11:28)
[2022-07-24] MEDS ORDERED: Cephalexin 500 MG Cap ONE (11:28)
== END 2022-07-24 13:01 | disposition home or self-care (01) ==
LOC: DL.ED 06:55
DX: N39.0 Urinary tract infection, site not specified (principal); K29.20 Alcoholic gastritis without bleeding; E86.0 Dehydration; E87.6 Hypokalemia; E10.9 Type 1 diabetes mellitus without complications; F17.210 Nicotine dependence, cigarettes, uncomplicated; E66.9 Obesity, unspecified; Z68.34 Body mass index [BMI] 34.0-34.9, adult; Z79.899 Other long term (current) drug therapy; Z20.822 Contact with and (suspected) exposure to COVID-19
CPT/HCPCS: 0241U; 36415; 74177; 80053; 80305; 80307; 81001; 81025; 82009; 82150; 83690; 85025; 87086; 96361; 96365; 96366; 96375; 99285; A9270; J0696; J1885; J2405; J3480; J3490; J7030; Q9967